=== PATIENT | male | born 1980 | race Hispanic/Latino ===

== ENCOUNTER 2017-09-24 05:51 | Emergency (ER) | payer BC ==
[2017-09-24] MEDS ORDERED: ONDANSETRON HCL MDV 20ML 2 MG/ML VIAL ONE (06:04)
[2017-09-24] MEDS ORDERED: SODIUM CHLORIDE 0.9% 1000ML 1,000 ML IV ONE (06:04)
[2017-09-24] MEDS ORDERED: KETOROLAC TROMETHAMINE 30MG/ML ONE (06:04)
[2017-09-24 06:10] LABS: BASOPHILS % (AUTO) 0.6 % (0.0-5.0); BILIRUBIN,URINE Negative (NEGATIVE); COLOR,URINE Yellow (YELLOW); GLUCOSE, URINE (UA) Negative (NEGATIVE); HEMATOCRIT 44.8 % (42-54); KETONES,URINE Negative (NEGATIVE); LEUKOCYTE ESTERASE ,URINE Negative (NEGATIVE); LYMPHOCYTES % (AUTO) 16.8 % (21.0-51.0); MEAN CORPUSCULAR HEMOGLOBIN 29.1 pg (27.0-33.0); MEAN CORPUSCULAR HGB CONC 33.9 g/dL (32.0-36.0); MEAN CORPUSCULAR VOLUME 85.7 fL (79-99); MONOCYTES % (AUTO) 6.6 % (3.0-13.0); NITRATE,URINE Negative (NEGATIVE); OCCULT BLOOD,URINE Small (NEGATIVE); PH,URINE 5.5 (5.0-8.0); PLATELET COUNT (AUTO) 237 K/uL (130-400); PROTEIN,URINE Trace (NEGATIVE); RED BLOOD CELL COUNT(AUTO) 5.23 MIL/uL (4.50-6.20); RED CELL DISTRIBUTION WIDTH 13.4 % (11.0-15.5); WHITE BLOOD COUNT (AUTO) 12.7 K/uL (4.8-10.8)
[2017-09-24 06:12] LABS: APPEARANCE,URINE SLIGHTLY CLOUDY (CLEAR)
[2017-09-24 06:19] LABS: POTASSIUM 4.5 mmol/L (3.5-5.1)
[2017-09-24 06:22] LABS: BACTERIA,URINE None Seen /HPF (None Seen); MUCUS,URINE Few LPF (None Seen); RBC,URINE 0-1 /HPF (0-1); SQUAMOUS EPITHELIAL CELL,UR Rare /HPF (0-2); WBC,URINE None Seen /HPF (0-1)
[2017-09-24 06:26] LABS: ALBUMIN 3.8 g/dL (3.5-5.0); BILIRUBIN,TOTAL 0.5 mg/dL (0.2-1.0)
[2017-09-24] MEDS ORDERED: TRAMADOL HCL 50 MG TABLET ONE (07:05)
[2017-09-24] MEDS ORDERED: TAMSULOSIN HCL 0.4 MG CAP.ER.24H ONE (07:06)
[2017-09-24] MEDS ORDERED: CYCLOBENZAPRINE HCL 10 MG TABLET ONE (07:06)
== END 2017-09-24 07:42 | disposition home or self-care (01) ==
LOC: EDH 05:51
DX: N20.1 Calculus of ureter (principal); Z87.442 Personal history of urinary calculi
CPT/HCPCS: 36415; 74176; 80053; 81001; 82150; 83690; 85025; 96361; 96374; 96375; 99285; J1885; J7030

== ENCOUNTER 2019-07-26 14:31 | Emergency (ER) | payer BC ==
[2019-07-26] MEDS ORDERED: IBUPROFEN 800 MG TAB ONE (16:11)
== END 2019-07-26 16:23 | disposition home or self-care (01) ==
LOC: EDH 14:31
DX: S43.491A Other sprain of right shoulder joint, initial encounter (principal); Z72.0 Tobacco use; Z87.442 Personal history of urinary calculi; X50.0XXA Overexertion from strenuous movement or load, initial encounter; Y93.89 Activity, other specified; Y92.89 Other specified places as the place of occurrence of the external cause; Y99.8 Other external cause status
CPT/HCPCS: 73030

== ENCOUNTER 2024-02-11 04:55 | Emergency (ER) | payer SELFPAY ==
[~2024-02-11] VITALS: Ht 172.7 cm; Wt 122.5 kg
[2024-02-11 05:40] LABS: APPEARANCE,URINE CLOUDY (CLEAR); BILIRUBIN,URINE NEGATIVE (NEGATIVE); COLOR,URINE YELLOW (YELLOW); GLUCOSE, URINE (UA) NEGATIVE (NEGATIVE); KETONES,URINE NEGATIVE (NEGATIVE); LEUKOCYTE ESTERASE ,URINE NEGATIVE Leu/uL (NEGATIVE); NITRATE,URINE NEGATIVE (NEGATIVE); OCCULT BLOOD,URINE LARGE (NEGATIVE); PH,URINE 5.5 (5.0-8.0); PROTEIN,URINE 20 mg/dL (NEGATIVE); UROBILINOGEN,URINE 0.2 mg/dL (0.2-1.0)
[2024-02-11 05:44] LABS: ADD UA MICROSCOPIC YES
[2024-02-11 05:55] LABS: MUCUS,URINE RARE LPF (None Seen); RBC,URINE TNTC /HPF (0-1); SQUAMOUS EPITHELIAL CELL,UR RARE /HPF (0-2)
[2024-02-11 06:02] LABS: BASOPHILS # (AUTO) 0.05 K/uL (0.00-0.20); BASOPHILS % (AUTO) 0.5 % (0.0-5.0); EOSINOPHILS # (AUTO) 0.11 K/uL (0.00-0.70); EOSINOPHILS % (AUTO) 1.1 % (0.0-8.0); HEMATOCRIT 43.7 % (42-54); IMMATURE GRANULOCYTE ABSOLUTE 0.04 K/uL (0-1); LYMPHOCYTES # (AUTO) 1.2 K/uL (1.0-4.8); LYMPHOCYTES % (AUTO) 12.9 % (21.0-51.0); MEAN CORPUSCULAR HEMOGLOBIN 28.9 pg (27.0-33.0); MEAN CORPUSCULAR HGB CONC 33.4 g/dL (32.0-36.0); MEAN CORPUSCULAR VOLUME 86.4 fL (79-99); MONOCYTES # (AUTO) 0.5 K/uL (0.1-1.0); MONOCYTES % (AUTO) 4.7 % (3.0-13.0); NEUTROPHILS # (AUTO) 7.7 K/uL (1.8-7.7); NEUTROPHILS % (AUTO) 80.4 % (40.0-77.0); PLATELET COUNT (AUTO) 244 K/uL (130-400); RED BLOOD CELL COUNT(AUTO) 5.06 MIL/uL (4.50-6.20); RED CELL DISTRIBUTION WIDTH 13.2 % (11.0-15.5); WHITE BLOOD COUNT (AUTO) 9.6 K/uL (4.8-10.8)
[2024-02-11] MEDS: KETOROLAC 30MG VIAL (30MG/ML) IVP ONE (06:10)
[2024-02-11 06:11] LABS: POTASSIUM 3.7 mmol/L (3.5-5.1)
[2024-02-11 09:46] VITALS: BP 127/88; PULSE 60; RESP 17; O2SAT 97
[2024-02-11] MEDS ORDERED: ONDA-243 PO (10:01)
[2024-02-11] MEDS ORDERED: IBUP-2077 PO (10:01)
[2024-02-11] MEDS ORDERED: TAMS-1 PO (10:01)
== END 2024-02-11 10:08 | disposition home or self-care (01) ==
LOC: EDH 04:55
DX: N13.2 Hydronephrosis with renal and ureteral calculous obstruction (principal)
CPT/HCPCS: 99285; 74176; 96374; 80048; 85025; 87086; 81001; 36415; J1885

== ENCOUNTER 2024-07-02 12:56 | Inpatient (IN) | payer SELFPAY ==
[~2024-07-02] VITALS: Ht 172.7 cm; Wt 2.3 kg
[~2024-07-02 12:56] MED LIST: IBUP-2077 PO; ONDA-243 PO; TAMS-1 PO
--- NOTE | 2024-07-02 13:04 | ERN ---
ED Note History of Present Illness Stated Complaint: RIGHT FLANK PAIN Chief Complaint: Flank Pain Time Seen by MD: 13:00 Dictation: PATIENT IS A 44-YEAR-OLD MALE COMING IN TODAY WITH RIGHT FLANK PAIN RADIATING TO RIGHT LOWER QUADRANT WITHOUT NAUSEA VOMITING FEVER CHILLS OR CHANGES IN URINATION. STATES HE HAD A KIDNEY STONE ON THE LEFT A YEAR AGO HOWEVER DOES NOT HAVE A PRIMARY CARE DOCTOR NO UROLOGIST AND HAS TAKEN NOTHING TODAY PRIOR TO ARRIVAL FOR PAIN. Allergies: Coded Allergies: No Known Drug Allergies (Unverified Allergy, Unknown, 02/11/24) Home Meds Active Scripts Ondansetron (Ondansetron Odt) 4 Mg Tab.rapdis, 4 MG PO TID PRN for NAUSEA/VOMITING, #30 TAB 0 Refills Prov:ZAKIYA WALKER MD 02/11/24 Ibuprofen (Ibuprofen 800 mg Tab) 800 Mg Tab, 800 MG PO Q6H PRN for PAIN, #30 TAB 0 Refills Prov:ZAKIYA WALKER MD 02/11/24 Tamsulosin HCl (Flomax) 0.4 Mg Cap.er.24h, 0.4 MG PO DAILY, #7 CAPSULE.DR 0 Refills Prov:ZAKIYA WALKER MD 02/11/24 Past Medical History Past Medical History: Kidney Stone Surgical History: Other Surgical History Other: KIDNEY STONE SX PSYCH History: no pertinent psych hx RN Note Reviewed/Agreed w/PFSH: Yes Review of System Dictation CONSTITUTIONAL: NEGATIVE EXCEPT FOR HPI HEAD/FACE: NEGATIVE EXCEPT FOR HPI EENT: NEGATIVE EXCEPT FOR HPI RESPIRATORY: NEGATIVE EXCEPT FOR HPI GASTROINTESTINAL/ABDOMINAL: NEGATIVE EXCEPT FOR HPI RIGHT FLANK PAIN RADIATING TO RIGHT LOWER QUADRANT GENITOURINARY: NEGATIVE EXCEPT FOR HPI MUSCULOSKELETAL: NEGATIVE EXCEPT FOR HPI INTEGUMENTARY: NEGATIVE EXCEPT FOR HPI NEUROLOGICAL/PSYCH: NEGATIVE EXCEPT FOR HPI HEMATOLOGIC/LYMPHATIC: NEGATIVE EXCEPT FOR HPI ALL SYSTEMS NEGATIVE, EXCEPT NOTED ABOVE. 13 POINT REVIEW OF SYSTEMS ASSESSED AND ALL NEGATIVE EXCEPT FOR ABOVE. Initial Vital Sign VS Vital Signs Date Time Temp Pulse Resp B/P (MAP) Pulse Ox O2 Delivery O2 Flow Rate FiO2 07/02/24 12:59 98.4 71 18 134/84 97 Room Air 0 07/02/24 13:03 21 Physical Exam Dictation VITAL SIGNS REVIEWED GENERAL APPEARANCE: ALERT, ORIENTED X 3, MT ACUTE DISTRESS, WELL DEVELOPED, NOURISHED. MORBIDLY OBESE HEAD AND FACE: NON-TRAUMATIC. EYES: PERRL, PINK CONJUNCTIVAS, EYELID NO TRAUMA, ANTERIOR CHAMBER WITH ARCUS SENILIS. EARS: PINNAS INTACT AND NO SIGNS OF TRAUMA OR ERYTHEMA EAR CANALS CLEAR AND NO DISCHARGE TM NO ERYTHEMA NOSE: NO DISCHARGE, NO BLEEDING. OROPHARYNX: MOUTH NORMAL, TONGUE PINK, PHARYNX CLEAR,NO ERYTHEMA, TONSILS NO EXUDATES, NO ABSCESSES NOTED, MUCOUS MEMBRANE MOIST NECK: SUPPLE, NON-TENDER, NO THYROMEGALY, NO MASSES, NO JVD, NO BRUITS BREAST:DEFERRED CHEST:NO TENDERNESS, NO CREPITUS, NO PARADOXICAL MOVEMENT, NO RETRACTIONS LUNGS:CLEAR, WELL-VENTILATED, SYMMETRIC, NO RALES, NO WHEEZING, NO RHONCHI, NO STRIDOR, GOOD BREATH SOUNDS BILATERALLY HEART: REGULAR RATE, REGULAR RHYTHM, NO MURMUR, NO GALLOPS VASCULAR: NO PERIPHERAL EDEMA, ABDOMEN: SOFT, POSITIVE BOWEL SOUNDS, NONDISTENDED, NO GUARDING, NONTENDER, NO REBOUND, NO MASSES NO HEPATOMEGALY, NO SPLENOMEGALY, NO CANTOR'S SIGN, NO HERNIAS. NEGATIVE CVAT BILATERAL RECTAL: DEFERRED GENITAL: DEFERRED NEUROLOGICAL: NORMAL SPEECH, MOTOR FUNCTION INTACT, SENSORY FUNCTION INTACT MUSCULOSKELETAL: NECK NONTENDER, FULL RANGE OF MOTION, BACK NONTENDER, FULL RANGE OF MOTION, EXTREMITIES: NONTENDER, FULL RANGE OF MOTION SKIN: COLOR PINK, DRY, NO TURGOR, NO RASH, NO LACERATIONS, NO ABRASIONS, NO CONTUSIONS. LYMPHATIC: DEFERRED Results (Laboratory/Radiology) Laboratory/Radiology Laboratory Tests Test 07/02/24 13:08 07/02/24 14:13 Urine Color YELLOW (YELLOW) Urine Appearance CLEAR (CLEAR) Urine pH 5.5 (5.0-8.0) Urine Specific Cord 1.026 (1.001-1.031) Urine Protein 10 mg/dL (NEGATIVE) H Urine Glucose (UA) NEGATIVE mg/dL (NEGATIVE) Urine Ketones NEGATIVE mg/dL (NEGATIVE) Urine Occult Blood +- (TRACE) (NEGATIVE) H Urine Nitrate NEGATIVE (NEGATIVE) Urine Bilirubin NEGATIVE mg/dL (NEGATIVE) Urine Urobilinogen 0.2 mg/dL (0.2-1.0) Urine Leukocyte Esterase NEGATIVE Kely/uL Urine RBC 0-1 /HPF (0-1) Urine WBC 0-1 /HPF (0-1) Urine Squamous Epithelial Cells RARE /HPF (0-2) Urine Bacteria None /HPF (None Seen) White Blood Count 9.5 K/uL (4.8-10.8) Red Blood Count 5.02 MIL/uL (4.50-6.20) Hemoglobin 14.9 g/dL (14.0-18.0) Hematocrit 43.6 % (42-54) Mean Corpuscular Volume 86.9 fL (79-99) Mean Corpuscular Hemoglobin 29.7 pg (27.0-33.0) Mean Corpuscular Hemoglobin Concent 34.2 g/dL (32.0-36.0) Red Cell Distribution Width 13.0 % (11.0-15.5) Platelet Count 246 K/uL (130-400) Mean Platelet Volume 12.2 fL (7.5-10.5) H Immature Granulocyte % (Auto) 0.3 % (0-1) Neutrophils (%) (Auto) 68.9 % (40.0-77.0) Lymphocytes (%) (Auto) 18.7 % (21.0-51.0) L Monocytes (%) (Auto) 8.4 % (3.0-13.0) Eosinophils (%) (Auto) 3.1 % (0.0-8.0) Basophils (%) (Auto) 0.6 % (0.0-5.0) Neutrophils # (Auto) 6.6 K/uL (1.8-7.7) Lymphocytes # (Auto) 1.8 K/uL (1.0-4.8) Monocytes # (Auto) 0.8 K/uL (0.1-1.0) Eosinophils # (Auto) 0.30 K/uL (0.00-0.70) Basophils # (Auto) 0.06 K/uL (0.00-0.20) Absolute Immature Granulocyte (auto 0.03 K/uL (0-1) Nucleated Red Blood Cells 0.0 % (0.0-0.19) Sodium Level 140 mmol/L (136-145) Potassium Level 3.7 mmol/L (3.5-5.1) Chloride Level 104 mmol/L (101-111) Carbon Dioxide Level 29 mmol/L (21-32) Blood Urea Nitrogen 8 mg/dL (7-18) Creatinine 0.9 mg/dL (0.5-1.3) Glomerular Filtration Rate Calc 108 mL/min (>90) Random Glucose 97 mg/dL (70-105) Total Calcium 8.7 mg/dL (8.5-10.1) Lipase 225 U/L (16-77) H CT ABDOMEN/PELVIS W/O CONTRAST INDICATION: RIGHT FLANK PAIN RADIATING TO RIGHT LOWER QUADRANT TWO DAYS TECHNIQUE: CT ABDOMEN/PELVIS W/O CONTRAST. Oral contrast was not given. Coronal and sagittal reformats were performed. CT was performed with one or more of the following dose reduction techniques: Automated exposure control, adjustment of the mA and/or kV according to the patient's size, or use of the iterative reconstruction technique. Comparison: 02/11/2024 FINDINGS: The noncontrast nature this study limits evaluation of abdominal viscera. No pulmonary consolidation or pleural effusion is seen. There is hepatic steatosis. Small gallstone is seen. Contracted gallbladder. The spleen, pancreas, and adrenal glands are within normal limits. No hydronephrosis seen. 5 mm nonobstructing calculus in the lower pole of the left kidney. Nondistended urinary bladder. Reproductive organs are grossly within normal limits for patient's age. No bowel obstruction identified. Appendix is normal in caliber. Degenerative changes of the spine. Visualized aorta is normal in caliber. IMPRESSION: 1. No hydronephrosis seen. 5 mm nonobstructing calculus in the lower pole of the left kidney. 2. Hepatic steatosis. 3. Cholelithiasis.. Labs Reviewed?: Yes ED Course ED Course Orders Procedure Category Date Status Time Cbc With Differential LAB 07/02/24 Complete 13:01 Urinalysis Profile LAB 07/02/24 Complete 13:01 0.9%Nacl 1000ml (Ns PHA 07/02/24 Complete 1000ml) 13:30 Ketorolac PHA 07/02/24 Complete Tromethamine 30mg/Ml 13:30 Ct Abdomen/Pelvis W/O CT 07/02/24 Resulted Contrast 13:01 Lipase LAB 07/02/24 Complete 13:01 Basic Metabolic Panel LAB 07/02/24 Complete 13:01 Famotidine 20mg Vial PHA 07/02/24 In Process (Pepcid 20mg Vial) 17:00 Current Medications Medications (Trade) Dose Ordered Sig/Miguel Angel Route PRN Reason Start Time Stop Time Status Last Admin Dose Admin Famotidine (Pepcid 20mg Vial) 20 mg ONCE ONCE IV 07/02/24 17:00 07/02/24 17:01 Ketorolac Tromethamine (toRADol) 30 mg ONCE ONCE IVP 07/02/24 13:30 07/02/24 13:31 DC 07/02/24 16:22 Sodium Chloride 1,000 ml @ 0 mls/hr ONCE ONCE IV 07/02/24 13:30 07/02/24 13:31 DC 07/02/24 16:22 Vital Signs Date Time Temp Pulse Resp B/P (MAP) Pulse Ox O2 Delivery O2 Flow Rate FiO2 07/02/24 13:03 98.4 71 18 134/84 97 Room Air* 0 21 07/02/24 12:59 98.4 71 18 134/84 97 Room Air 0 SIXTEEN 50, SPOKE WITH PATIENT AND HE IS AWARE THAT HE HAS ACUTE PANCREATITIS AND WE WILL BE ADMITTED TO THE HOSPITAL. CURRENTLY CONTINUES TO COMPLAIN OF E PIGASTRIC AND MILD LEFT UPPER QUADRANT TENDERNESS. CT WAS NEGATIVE FOR PANCREATIC HEAD INFLAMMATION. 1655 SPOKE WITH , REVIEWED CT AND LABS HE AGREED TO ADMIT PATIENT. HE ALSO REQUESTED A LIPID PANEL BE ADDED TO THE ORDERS. Medical Decision Making MDM MDM: DIFFERENTIAL DIAGNOSIS: HYDRONEPHROSIS/HYDROURETER/URETERAL COLIC/PYELONEPHRITI S/UTI/PANCREATITIS/DIVERTICULITIS/GASTRITIS/DIABETES RATIONALE: TESTS CONSIDERED AND ORDERED SECONDARY TO SHARED DECISION MAKING INCLUDE: LABS, AND RADIOLOGY PREVIOUS OUTSIDE RECORDS REVIEWED: OLD ER VISITS. REVIEWED RISK OF COMPLICATION AND/OR MORBIDITY OR MORTALITY OF PATIENT MANAGEMENT: MODERATE MEDICATIONS-PER MEDICATION RECONCILIATION SEE NURSE'S NOTES NEED FOR HOSPITALIZATION: PATIENT DOES MEET CRITERIA FOR HOSPITALIZATION. PATIENT WILL BE NPO FLUID MANAGEMENT AND PAIN MANAGEMENT. NEED FOR EMERGENCY MAJOR/MINOR SURGERY: NO THERE ARE NO SOCIAL CONCERNS WITH THIS PATIENT. PRESCRIPTION DRUG MANAGEMENT PRESCRIPTIONS WILL INCLUDE SYMPTOMATIC CARE PATIENT'S PRIOR EXTERNAL MEDICAL RECORDS FROM OTHER ER VISITS WERE REVIEWED BY ME INDICATED. PRIOR TESTING AND RESULTS FROM PREVIOUS VISITS WERE REVIEWED. PRIOR TESTS WERE TAKEN INTO ACCOUNT WITH MEDICAL DECISION MAKING AND RESOURCE UTILIZATION, INDEPENDENT HISTORIAN/HISTORIANS WERE USED TO OBTAIN COMPLETE MEDICAL HISTORY. I INDEPENDENTLY INTERPRETED THE TEST THAT WERE PERFORMED, RESULTS WERE REVIEWED BY ME AND CONSIDERED FINDINGS ON RADIOLOGY IF ORDERED. MEDICAL MANAGEMENT AND EXAMINATION INTERPRETATION DISCUSSIONS WERE HAD BY ME WITH OTHER QUALIFIED HEALTHCARE PROFESSIONALS INDICATED FOR THE PATIENT'S CARE. DX & DISP Disposition: Inpatient Decision to Admit Time: 16:57 Departure Impression: Primary Impression: Acute pancreatitis Additional Impressions: Left renal stone, Obesity Condition: Stable Referrals: SELF,REFERRAL (PCP) Time of Disposition: 16:57 I have reviewed the case, and I agree with, Diagnosis and Plan GERMAN HENRY NP Jul 02, 2024 13:03
--- NOTE | 2024-07-02 13:51 | HMCIMG ---
CT ABDOMEN/PELVIS W/O CONTRAST INDICATION: RIGHT FLANK PAIN RADIATING TO RIGHT LOWER QUADRANT TWO DAYS TECHNIQUE: CT ABDOMEN/PELVIS W/O CONTRAST. Oral contrast was not given. Coronal and sagittal reformats were performed. CT was performed with one or more of the following dose reduction techniques: Automated exposure control, adjustment of the mA and/or kV according to the patient's size, or use of the iterative reconstruction technique. Comparison: 02/11/2024 FINDINGS: The noncontrast nature this study limits evaluation of abdominal viscera. No pulmonary consolidation or pleural effusion is seen. There is hepatic steatosis. Small gallstone is seen. Contracted gallbladder. The spleen, pancreas, and adrenal glands are within normal limits. No hydronephrosis seen. 5 mm nonobstructing calculus in the lower pole of the left kidney. Nondistended urinary bladder. Reproductive organs are grossly within normal limits for patient's age. No bowel obstruction identified. Appendix is normal in caliber. Degenerative changes of the spine. Visualized aorta is normal in caliber. IMPRESSION: 1. No hydronephrosis seen. 5 mm nonobstructing calculus in the lower pole of the left kidney. 2. Hepatic steatosis. 3. Cholelithiasis..
[2024-07-02 13:56] LABS: APPEARANCE,URINE CLEAR (CLEAR); BILIRUBIN,URINE NEGATIVE (NEGATIVE); COLOR,URINE YELLOW (YELLOW); GLUCOSE, URINE (UA) NEGATIVE (NEGATIVE); KETONES,URINE NEGATIVE (NEGATIVE); LEUKOCYTE ESTERASE ,URINE NEGATIVE Leu/uL (NEGATIVE); NITRATE,URINE NEGATIVE (NEGATIVE); PH,URINE 5.5 (5.0-8.0); PROTEIN,URINE 10 mg/dL (NEGATIVE); UROBILINOGEN,URINE 0.2 mg/dL (0.2-1.0)
[2024-07-02 13:57] LABS: ADD UA MICROSCOPIC YES
[2024-07-02 13:59] LABS: MUCUS,URINE RARE LPF (None Seen); RBC,URINE 0-1 /HPF (0-1); SQUAMOUS EPITHELIAL CELL,UR RARE /HPF (0-2); WBC,URINE 0-1 /HPF (0-1)
[2024-07-02 14:29] LABS: BASOPHILS # (AUTO) 0.06 K/uL (0.00-0.20); BASOPHILS % (AUTO) 0.6 % (0.0-5.0); EOSINOPHILS % (AUTO) 3.1 % (0.0-8.0); HEMATOCRIT 43.6 % (42-54); IMMATURE GRANULOCYTE ABSOLUTE 0.03 K/uL (0-1); LYMPHOCYTES # (AUTO) 1.8 K/uL (1.0-4.8); LYMPHOCYTES % (AUTO) 18.7 % (21.0-51.0); MEAN CORPUSCULAR HEMOGLOBIN 29.7 pg (27.0-33.0); MEAN CORPUSCULAR HGB CONC 34.2 g/dL (32.0-36.0); MEAN CORPUSCULAR VOLUME 86.9 fL (79-99); MONOCYTES # (AUTO) 0.8 K/uL (0.1-1.0); MONOCYTES % (AUTO) 8.4 % (3.0-13.0); NEUTROPHILS # (AUTO) 6.6 K/uL (1.8-7.7); NEUTROPHILS % (AUTO) 68.9 % (40.0-77.0); PLATELET COUNT (AUTO) 246 K/uL (130-400); RED BLOOD CELL COUNT(AUTO) 5.02 MIL/uL (4.50-6.20); WHITE BLOOD COUNT (AUTO) 9.5 K/uL (4.8-10.8)
[2024-07-02 14:54] LABS: CREATININE 0.9 mg/dL (0.5-1.3); POTASSIUM 3.7 mmol/L (3.5-5.1)
[2024-07-02] MEDS: ketOROlac 30MG VIAL (30MG/ML) IVP ONE (16:22)
[2024-07-02] MEDS: 0.9%NACL 1000ML 1,000 ML IV ONE (16:22)
[2024-07-02] MEDS ORDERED: acetaMINOPHEN 325 MG TAB PO PRN (17:30)
[2024-07-02] MEDS ORDERED: ondanSETRON 4MG INJ IVP PRN (17:30)
[2024-07-02 17:32] LABS: INR 0.96 (0.85-1.15); PROTHROMBIN TIME 10.8 SEC (9.6-11.6)
[2024-07-02 17:33] LABS: PARTIAL THROMBOPLASTIN TIME 30.8 SEC (26.3-35.5)
[2024-07-02 17:38] LABS: ALBUMIN 3.6 g/dL (3.5-5.0); BILIRUBIN,DIRECT 0.1 mg/dL (0.0-0.3); BILIRUBIN,TOTAL 0.3 mg/dL (0.2-1.0); MAGNESIUM 1.8 mg/dL (1.80-2.40); TOTAL PROTEIN, SERUM 7.9 g/dL (6.0-8.3)
--- NOTE | 2024-07-02 18:02 | HMCIMG ---
Exam Type: CHEST 1VW Clinical Information: assess for any significant infiltrates, possible pancreatitis Comparison: None Findings: Ill-defined infiltrates of the right lower lobe are seen consistent with pneumonia. The heart is normal in size. The bony and soft tissue structures show no worrisome pathology. IMPRESSION: Findings consistent with pneumonia. Follow-up is advised.
[2024-07-02] MEDS: LACTATED RINGERS 1000ML 1,000 ML IV SCH (18:20)
[2024-07-02] MEDS: PANTOPrazole 40 MG/VIAL IVP SCH (18:20)
[2024-07-02] MEDS: FAMOTIDINE 20MG VIAL IV ONE (18:20)
--- NOTE | 2024-07-02 18:59 | HMCIMG ---
Exam Type: US ABDOMINAL RUQ\E\LTD Clinical Information: r/o cholecystitis, assess for cholelithiasis Comparison: None Findings: The liver shows fatty infiltration and is enlarged, measuring 18 cm and is otherwise unremarkable. Doppler evaluation shows patent portal and hepatic veins. The gallbladder shows evidence of cholelithiasis. There is no evidence of acute or chronic cholecystitis. No bile duct dilatation is noted. The gallbladder wall measures 2 mm. The common bile duct measures 6 mm. The right kidney measures 12 x 3.5 cm- it shows no hydronephrosis or calculi, masses or other abnormalities. The pancreas is unremarkable. The aorta and inferior vena cava show no significant abnormalities. IMPRESSION: FATTY LIVER INFILTRATION AND HEPATOMEGALY. Cholelithiasis.
[2024-07-02] MEDS: SODIUM CHLORIDE 3% FOR INHALATION 4 ML/AMP VIAL.NEB IH ONE ×2 (19:17→23:20)
--- NOTE | 2024-07-02 19:25 | HP ---
[facility] HISTORY [facility] PHYSICAL Date of Service: Jul 02, 2024 Time of Service: 19:06 HISTORY OF PRESENT ILLNESS: Date of service: 07/02/2024, patient was seen in ER room 11 44-year-old male with underlying history of obesity, previous history of nephrolithiasis who presented to the ER with chief complaint of right-sided flank pain and right upper quadrant pain ongoing for the past two days. Symptoms started close to Wednesday afternoon and has been nonresolving. Pain is 7/10 in severity. Symptoms have been accompanied by bloating. Denies any nausea or vomiting. Pain was involving the right flank earlier this morning and has migrated to the right upper quadrant. Denies any previous history of similar pain. Patient does have underlying history of left renal nephrolithiasis and previously needed lithotripsy in 2008. Denies any previous history of pulmonary or cardiac comorbidities. Reports that two weeks ago, he was sick with mild congestion and mild cough. Since then he has recovered. He also states that he may have pulled his muscle on the right side on car ride few days ago. On presentation to the hospital, patient was noted to be afebrile and hem odynamically stable. Labs on presentation showed WBC count of 9500, hemoglobin of 14.9, platelet count of 380646. CMP remarkable for sodium of 140, potassium 3.7, creatinine 0.9, magnesium 1.8, lipase was noted to be mildly elevated at 225. Patient underwent CT abdomen pelvis without contrast which showed fatty liver with cholelithiasis. Patient was found to have a nonobstructing 5 mm left renal calculus. Chest x-ray showed possible right lower lobe infiltrates and per Radiology, patient may be developing a pneumonia. Patient will be admitted for further management of possible developing acute pancreatitis, as well as pneumonia. Patient will receive IV fluid hydration, and antibiotic therapy. We will see how patient progresses in the next 24-48 hours. We will obtain right upper quadrant ultrasound to rule out any developing acute cholecystitis. Discussed with patient about losing weight once his clinical status improves. REVIEW OF SYSTEMS CONSTITUTIONAL: Denies fevers, chills, or night sweats. No unintentional weight loss reported. NEUROLOGICAL: Denies headache, amaurosis fugax, motor weakness, sensory deficit, vertigo/spinning sensation, gait abnormalities, or tremors. ENT: No hearing loss, otalgia, otorrhea, rhinitis, rhinorrhea, hoarseness, or sore throat. CARDIOVASCULAR: Denies any exertional angina, dyspnea on exertion, orthopnea, paroxysmal nocturnal dyspnea, palpitations, life-threatening arrhythmias, claudication. PULMONARY: Denies any shortness of breath, cough, phlegm/sputum, hemoptysis, pleuritic chest pain. SLEEP: Denies morning headaches, daytime somnolence or napping. Denies difficulty falling asleep, staying asleep, waking from sleep. Denies knowledge of snoring. GASTROINTESTINAL: Persistent nonresolving right flank as well as right upper quadrant pain GENITOURINARY: Denies frequency, urgency, nocturia, hematuria or incontinence (Storage/Irritative symptoms.) Low urinary stream, straining to void, urinary intermittency or hesitancy, splitting of the voiding stream, terminal dribbling. ENDOCRINOLOGIC: Denies polyuria, polydipsia, polyphagia or heat/cold intolerances. HEMATOLOGIC: Denies thrombophilia/previous clots, or coagulopathy/bleeding disorders. ONCOLOGIC: Denies personal history of malignancy. DERMATOLOGIC: Denies rashes or pruritus. PSYCHIATRIC: Denies any suicidal or homicidal ideation. Denies hallucinations. 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 NEUROLOGICAL: Cranial nerves II-XII grossly intact. Motor is 5/5 in bilateral upper and lower extremities proximal to distal. No sensory deficits. HEENT: Face is symmetric. Pupils are equal and reactive. Extraocular movements are intact. NECK: Supple. No JVD. No thyromegaly. No submental, submandibular, pre-/postauricular, occipital or supraclavicular lymphadenopathy. CHEST: Normal chest expansion. No Telemetry. LUNGS: Absence of any rales, rhonchi or any wheezing. CARDIOVASCULAR: Regular. S1 and S2 normal. No appreciable rubs, murmurs or gallops. ABDOMEN: Soft, nontender, and nondistended. Mild tenderness to palpation of the right upper quadrant and right flank region with no rebound or guarding : Deferred. No [place]. EXTREMITIES: Non-edematous and not cyanotic. No clubbing. Good capillary refill. SKIN: No skin breakdown. Vital Sign (Last 24 Hours) 07/02/24 18:52 Temp 98.2 Pulse 71 Resp 16 B/P (MAP) 146/89 Pulse Ox 98 O2 Delivery Room Air* O2 Flow Rate 0 FiO2 21 LABS: Laboratory: Test 07/02/24 14:13 07/02/24 13:08 Range/Units White Blood Count 9.5 4.8-10.8 K/uL Red Blood Count 5.02 4.50-6.20 MIL/uL Hemoglobin 14.9 14.0-18.0 g/dL Hematocrit 43.6 42-54 % Mean Corpuscular Volume 86.9 79-99 fL Mean Corpuscular Hemoglobin 29.7 27.0-33.0 pg Mean Corpuscular Hemoglobin Concent 34.2 32.0-36.0 g/dL Red Cell Distribution Width 13.0 11.0-15.5 % Platelet Count 246 130-400 K/uL Mean Platelet Volume 12.2 H 7.5-10.5 fL Immature Granulocyte % (Auto) 0.3 0-1 % Neutrophils (%) (Auto) 68.9 40.0-77.0 % Lymphocytes (%) (Auto) 18.7 L 21.0-51.0 % Monocytes (%) (Auto) 8.4 3.0-13.0 % Eosinophils (%) (Auto) 3.1 0.0-8.0 % Basophils (%) (Auto) 0.6 0.0-5.0 % Neutrophils # (Auto) 6.6 1.8-7.7 K/uL Lymphocytes # (Auto) 1.8 1.0-4.8 K/uL Monocytes # (Auto) 0.8 0.1-1.0 K/uL Eosinophils # (Auto) 0.30 0.00-0.70 K/uL Basophils # (Auto) 0.06 0.00-0.20 K/uL Absolute Immature Granulocyte (auto 0.03 0-1 K/uL Nucleated Red Blood Cells 0.0 0.0-0.19 % Erythrocyte Sedimentation Rate 15 0-15 MM/HR Prothrombin Time 10.8 9.6-11.6 SEC Prothromb Time International Ratio 0.96 0.85-1.15 Activated Partial Thromboplast Time 30.8 26.3-35.5 SEC Sodium Level 140 136-145 mmol/L Potassium Level 3.7 3.5-5.1 mmol/L Chloride Level 104 101-111 mmol/L Carbon Dioxide Level 29 21-32 mmol/L Blood Urea Nitrogen 8 7-18 mg/dL Creatinine 0.9 0.5-1.3 mg/dL Glomerular Filtration Rate Calc 108 >90 mL/min Random Glucose 97 70-105 mg/dL Total Calcium 8.7 8.5-10.1 mg/dL Magnesium Level 1.80 1.80-2.40 mg/dL Total Bilirubin 0.3 0.2-1.0 mg/dL Direct Bilirubin 0.1 0.0-0.3 mg/dL Aspartate Amino Transf (AST/SGOT) 39 H 10-37 U/L Alanine Aminotransferase (ALT/SGPT) 60 12-78 U/L Alkaline Phosphatase 122 50-136 U/L Lactate Dehydrogenase 184 81-234 U/L C-Reactive Protein, Quantitative 9.30 H 0.5-3.0 mg/L Total Protein 7.9 6.0-8.3 g/dL Albumin 3.6 3.5-5.0 g/dL Triglycerides Level 131 30-200 mg/dL Cholesterol Level 179 <200 mg/dL LDL Cholesterol 123 H 0-99 mg/dL HDL Cholesterol 40 29-71 mg/dL Amylase Level 93 # 25-115 U/L Lipase 225 H 16-77 U/L Procalcitonin < 0.05 L 0.05-0.5 ng/mL Urine Color YELLOW YELLOW Urine Appearance CLEAR CLEAR Urine pH 5.5 5.0-8.0 Urine Specific [place] 1.026 1.001-1.031 Urine Protein 10 H NEGATIVE mg/dL Urine Glucose (UA) NEGATIVE NEGATIVE mg/dL Urine Ketones NEGATIVE NEGATIVE mg/dL Urine Occult Blood +- (TRACE) H NEGATIVE Urine Nitrate NEGATIVE NEGATIVE Urine Bilirubin NEGATIVE NEGATIVE mg/dL Urine Urobilinogen 0.2 0.2-1.0 mg/dL Urine Leukocyte Esterase NEGATIVE NEGATIVE Kely/uL Urine RBC 0-1 0-1 /HPF Urine WBC 0-1 0-1 /HPF Urine Squamous Epithelial Cells RARE 0-2 /HPF Urine Bacteria None None Seen /HPF Current Medications Medications (Trade) Dose Ordered Sig/Miguel Angel Route PRN Reason Start Time Stop Time Status Last Admin Dose Admin Acetaminophen (TYLenol 325MG TAB) 650 mg Q6H PRN PO MILD PAIN (1-3) 07/02/24 17:30 08/01/24 17:29 Ceftriaxone Sodium (ROCEphine 1G INJ) 1 gm Q12H IVPB 07/02/24 19:00 07/12/24 18:59 Doxycycline Hyclate (Doxycycline Hyclate) 100 mg BID PO 07/02/24 21:00 07/12/24 20:59 Enoxaparin Sodium (Lovenox) 40 mg DAILY SQ 07/03/24 09:00 08/02/24 08:59 Ketorolac Tromethamine (toRADol) 15 mg Q8H PRN IV MODERATE PAIN (4-6) 07/02/24 17:30 07/04/24 17:30 Lactated Ringer's 1,000 ml @ 125 mls/hr Q8H IV 07/02/24 17:30 08/01/24 17:29 07/02/24 18:20 125 MLS/HR Morphine Sulfate (morPHINE 2MG SYG) 2 mg Q6H PRN IVP SEVERE PAIN (7-10) 07/02/24 17:30 07/09/24 17:29 Ondansetron HCl (zoFRAN 4MG INJ) 4 mg Q6H PRN IVP NAUSEA/VOMITING 07/02/24 17:30 08/01/24 17:29 Pantoprazole Sodium (PROTonix 40MG INJ) 40 mg Q24H IVP 07/02/24 17:30 08/01/24 17:29 07/02/24 18:20 40 MG DIAGNOSTICS / RADIOLOGY: REPORT#: [id number] SERVICE 1301 REASON: RIGHT FLANK PAIN RADIATING TO RIGHT LOWER QUADRANT TWO DAYS ORDERING PHYSICIAN: GERMAN HENRY NP PROCEDURE: ABD PEL WO - CT ABDOMEN/PELVIS W/O CONTRAST CT ABDOMEN/PELVIS W/O CONTRAST INDICATION: RIGHT FLANK PAIN RADIATING TO RIGHT LOWER QUADRANT TWO DAYS TECHNIQUE: CT ABDOMEN/PELVIS W/O CONTRAST. Oral contrast was not given. Coronal and sagittal reformats were performed. CT was performed with one or more of the following dose reduction techniques: Automated exposure control, adjustment of the mA and/or kV according to the patient's size, or use of the iterative reconstruction technique. Comparison: 02/11/2024 FINDINGS: The noncontrast nature this study limits evaluation of abdominal viscera. No pulmonary consolidation or pleural effusion is seen. There is hepatic steatosis. Small gallstone is seen. Contracted gallbladder. The spleen, pancreas, and adrenal glands are within normal limits. No hydronephrosis seen. 5 mm nonobstructing calculus in the lower pole of the left kidney. Nondistended urinary bladder. Reproductive organs are grossly within normal limits for patient's age. No bowel obstruction identified. Appendix is normal in caliber. Degenerative changes of the spine. Visualized aorta is normal in caliber. IMPRESSION: 1. No hydronephrosis seen. 5 mm nonobstructing calculus in the lower pole of the left kidney. 2. Hepatic steatosis. 3. Cholelithiasis.. DICTATED BY: VELVET AMBROCIO MD DATE: 07/02/24 1346 ELECTRONICALLY SIGNED BY: VELVET AMBROCIO MD DATE: 07/02/24 1351 ASSESSMENT: Suspected developing acute pancreatitis, POA Rule out developing right lower lobe community-acquired pneumonia, POA Nonresolving right upper quadrant right flank pain, POA Cholelithiasis, POA Rule out symptomatic biliary colic, POA Nonalcoholic fatty liver disease, POA Obesity, POA Nonobstructing left renal calculus, 5 mm, POA History of nephrolithiasis, POA PLAN: 44-year-old male presented with nonresolving right upper quadrant and right flank pain for the past two days, labs remarkable for mild elevation of lipase and CT abdomen pelvis showed findings of cholelithiasis, fatty liver, and nonobstructing 5 mm left renal calculus. Chest x-ray showed ill-defined infiltrates of the right lower lobe with concerns for developing pneumonia. Patient denies any significant cough, he did state that he was sick with URI symptoms about two weeks ago which has been resolving. Patient will be admitted to medical-surgical floor under telemetry monitoring We will start patient on IV hydration with LR at 125 cc an hour, we will keep him NPO tonight and once abdominal pain improves, we will start patient on a diet We will obtain sputum culture, we will start broad-spectrum antibiotics with IV Rocephin and doxycycline, we will also obtain COVID and flu panel, to further clarify diagnosis if patient has right lower lobe pneumonia, we can consider CT chest without contrast tomorrow monitor closely for fevers tonight We will obtain a right upper quadrant ultrasound to assess for developing acute cholecystitis as well, other differential diagnosis for right upper quadrant abdominal pain remains symptomatic biliary colic, we will have dietitian see patient for low-fat diet All labs will be repeated in the morning GI prophylaxis with Protonix, DVT prophylaxis with Lovenox Pain control with Tylenol for mild pain, Toradol for moderate pain, and morphine for severe pain We will see how patient progresses in the next 24-48 hours Once patient clinically improves, discuss with him about dietary and lifestyle modification to lose weight, patient will benefit from outpatient sleep study to rule out obstructive sleep apnea, we will refer to sleep lab on discharge Date of service: 07/02/2024 Prognosis: Guarded Plan of care was discussed with patient at bedside, Saulo Deluna MD Advanced Care Planning: Which of the following were discussed: Hospice care: Yes __ No _x_ Therapeutic options: Yes _x_ No __ Advance directives: Yes _x_ No __ Other discussions: Discussed with who?: Patient Voluntary nature of this service was explained to the patient? Yes _x_ No __ Amount of time spent: 20 minutes SAULO DELUNA MD Jul 02, 2024 19:25
[2024-07-02] MEDS ORDERED: IpraTROPium/alBUTERol SULFATE 3 ML SOLUTION IH PRN (19:30)
[2024-07-02] MEDS: cefTRIAXone 1G VIAL IVPB SCH (19:37)
[2024-07-02] MEDS: DOXYCYCLINE HYCLATE 100 MG TABLET PO SCH (19:37)
[2024-07-02] MEDS: ketOROlac 15MG/ML VIAL (15MG/ML) IV PRN (19:56)
[2024-07-02 21:20] VITALS: BP 142/80; PULSE 60; RESP 18; TEMP 97.9
--- NOTE | 2024-07-02 21:22 | NUR ---
NO HOME MEDICATIONS TAKEN, REPORTED TO FLOOR NURSE
[2024-07-02 23:24] VITALS: RESP 18; O2SAT 98
[2024-07-03] VITALS (9 sets, daily range): BP systolic 139–150; BP diastolic 76–90; PULSE 50–83; RESP 18–20; TEMP 97.9–98.5; O2SAT 95–98
[2024-07-03] MEDS: morPHINE 2 MG SYG IVP PRN (01:48)
[2024-07-03 04:15] LABS: BASOPHILS # (AUTO) 0.04 K/uL (0.00-0.20); BASOPHILS % (AUTO) 0.5 % (0.0-5.0); EOSINOPHILS # (AUTO) 0.24 K/uL (0.00-0.70); HEMATOCRIT 40.2 % (42-54); IMMATURE GRANULOCYTE ABSOLUTE 0.02 K/uL (0-1); LYMPHOCYTES % (AUTO) 24.3 % (21.0-51.0); MEAN CORPUSCULAR HEMOGLOBIN 29.2 pg (27.0-33.0); MEAN CORPUSCULAR HGB CONC 33.8 g/dL (32.0-36.0); MEAN CORPUSCULAR VOLUME 86.3 fL (79-99); MONOCYTES # (AUTO) 0.6 K/uL (0.1-1.0); MONOCYTES % (AUTO) 7.2 % (3.0-13.0); NEUTROPHILS # (AUTO) 5.2 K/uL (1.8-7.7); NEUTROPHILS % (AUTO) 64.8 % (40.0-77.0); PLATELET COUNT (AUTO) 223 K/uL (130-400); RED BLOOD CELL COUNT(AUTO) 4.66 MIL/uL (4.50-6.20); RED CELL DISTRIBUTION WIDTH 13.1 % (11.0-15.5); WHITE BLOOD COUNT (AUTO) 8.1 K/uL (4.8-10.8)
[2024-07-03 04:31] LABS: ALBUMIN 3.1 g/dL (3.5-5.0); BILIRUBIN,TOTAL 0.3 mg/dL (0.2-1.0); CREATININE 0.8 mg/dL (0.5-1.3); MAGNESIUM 1.8 mg/dL (1.80-2.40); POTASSIUM 3.8 mmol/L (3.5-5.1)
[2024-07-03] MEDS: IpraTROPium 0.5 MG/2.5 ML INH IH ONE (06:36)
[2024-07-03] MEDS: ENOXAPARIN SODIUM 40 MG/0.4 ML SYRINGE SQ SCH (09:37)
--- NOTE | 2024-07-03 11:16 | PN ---
[facility] PROGRESS NOTE Date of Service: Jul 03, 2024 Time of Service: 11:16 SUBJECTIVE: 44-year-old male with underlying history of obesity, previous history of nephrolithiasis who presented to the ER with chief complaint of right-sided flank pain and right upper quadrant pain ongoing for the past two days. Symptoms started close to Wednesday afternoon and has been nonresolving. Pain is 7/10 in severity. Symptoms have been accompanied by bloating. Denies any nausea or vomiting. Pain was involving the right flank earlier this morning and has migrated to the right upper quadrant. Denies any previous history of similar pain. Patient does have underlying history of left renal nephrolithiasis and previously needed lithotripsy in 2008. CT abdomen/pelvis1. No hydronephrosis seen. 5 mm nonobstructing calculus in the lowerpole of the left kidney.2. Hepatic steatosis.3. Cholelithiasis.. Abdominal ultrasound-FATTY LIVER INFILTRATION AND HEPATOMEGALY. Cholelithiasis. 07/03-patient was seen at the bedside with his present. Stable and orientedx3, resolving right upper quadrant pain. Hemodynamically stable. Unremarkable labs. Patient will be continued on doxy and Rocephin for pneumonia. GI consultation noted for recommendation on cholelithiasis. Patient is started on a GI soft diet, we will see if he tolerates well. We will follow accordingly. REVIEW OF SYSTEMS CONSTITUTIONAL: Denies fevers, chills, or night sweats. No unintentional weight loss reported. NEUROLOGICAL: Denies headache, amaurosis fugax, motor weakness, sensory deficit, vertigo/spinning sensation, gait abnormalities, or tremors. ENT: No hearing loss, otalgia, otorrhea, rhinitis, rhinorrhea, hoarseness, or sore throat. CARDIOVASCULAR: Denies any exertional angina, dyspnea on exertion, orthopnea, paroxysmal nocturnal dyspnea, palpitations, life-threatening arrhythmias, claudication. PULMONARY: Denies any shortness of breath, cough, phlegm/sputum, hemoptysis, pleuritic chest pain. SLEEP: Denies morning headaches, daytime somnolence or napping. Denies difficulty falling asleep, staying asleep, waking from sleep. Denies knowledge of snoring. GASTROINTESTINAL: Persistent resolving right flank as well as right upper quadrant pain GENITOURINARY: Denies frequency, urgency, nocturia, hematuria or incontinence (Storage/Irritative symptoms.) Low urinary stream, straining to void, urinary intermittency or hesitancy, splitting of the voiding stream, terminal dribbling. ENDOCRINOLOGIC: Denies polyuria, polydipsia, polyphagia or heat/cold intolerances. HEMATOLOGIC: Denies thrombophilia/previous clots, or coagulopathy/bleeding disorders. ONCOLOGIC: Denies personal history of malignancy. DERMATOLOGIC: Denies rashes or pruritus. PSYCHIATRIC: Denies any suicidal or homicidal ideation. Denies hallucinations. PHYSICAL EXAM GENERAL APPEARANCE: The patient is awake, alert, and oriented, in no acute cardiopulmonary distress. NEUROLOGICAL: Cranial nerves II-XII grossly intact. Motor is 5/5 in bilateral upper and lower extremities proximal to distal. No sensory deficits. HEENT: Face is symmetric. Pupils are equal and reactive. Extraocular movements are intact. NECK: Supple. No JVD. No thyromegaly. No submental, submandibular, pre- /postauricular, occipital or supraclavicular lymphadenopathy. CHEST: Normal chest expansion. No Telemetry. LUNGS: Absence of any rales, rhonchi or any wheezing. CARDIOVASCULAR: Regular. S1 and S2 normal. No appreciable rubs, murmurs or gallops. ABDOMEN: Soft, nontender, and nondistended. Mild tenderness to palpation of the right upper quadrant and right flank region with no rebound or guarding : Deferred. No [place]. EXTREMITIES: Non-edematous and not cyanotic. No clubbing. Good capillary refill. SKIN: No skin breakdown. Vital Signs (last 8hr) Date Time Temp Pulse Resp B/P (MAP) Pulse Ox O2 Delivery O2 Flow Rate FiO2 07/03/24 08:00 Room Air* 0 21 07/03/24 08:00 97.9 64 18 148/88 96 Room Air 07/03/24 06:38 69 18 N/A Room Air 21 07/03/24 04:00 98.4 50 18 141/79 96 Room Air LABS: Laboratory: Test 07/03/24 03:56 07/02/24 14:13 07/02/24 13:08 Range/Units White Blood Count 8.1 4.8-10.8 K/uL Red Blood Count 4.66 4.50-6.20 MIL/uL Hemoglobin 13.6 L 14.0-18.0 g/dL Hematocrit 40.2 L 42-54 % Mean Corpuscular Volume 86.3 79-99 fL Mean Corpuscular Hemoglobin 29.2 27.0-33.0 pg Mean Corpuscular Hemoglobin Concent 33.8 32.0-36.0 g/dL Red Cell Distribution Width 13.1 11.0-15.5 % Platelet Count 223 130-400 K/uL Mean Platelet Volume 12.1 H 7.5-10.5 fL Immature Granulocyte % (Auto) 0.2 0-1 % Neutrophils (%) (Auto) 64.8 40.0-77.0 % Lymphocytes (%) (Auto) 24.3 21.0-51.0 % Monocytes (%) (Auto) 7.2 3.0-13.0 % Eosinophils (%) (Auto) 3.0 0.0-8.0 % Basophils (%) (Auto) 0.5 0.0-5.0 % Neutrophils # (Auto) 5.2 1.8-7.7 K/uL Lymphocytes # (Auto) 2.0 1.0-4.8 K/uL Monocytes # (Auto) 0.6 0.1-1.0 K/uL Eosinophils # (Auto) 0.24 0.00-0.70 K/uL Basophils # (Auto) 0.04 0.00-0.20 K/uL Absolute Immature Granulocyte (auto 0.02 0-1 K/uL Nucleated Red Blood Cells 0.0 0.0-0.19 % Sodium Level 140 136-145 mmol/L Potassium Level 3.8 3.5-5.1 mmol/L Chloride Level 106 101-111 mmol/L Carbon Dioxide Level 27 21-32 mmol/L Blood Urea Nitrogen 7 7-18 mg/dL Creatinine 0.8 0.5-1.3 mg/dL Glomerular Filtration Rate Calc 112 >90 mL/min Random Glucose 96 70-105 mg/dL Total Calcium 8.5 8.5-10.1 mg/dL Magnesium Level 1.80 1.80-2.40 mg/dL Total Bilirubin 0.3 0.2-1.0 mg/dL Aspartate Amino Transf (AST/SGOT) 30 10-37 U/L Alanine Aminotransferase (ALT/SGPT) 48 12-78 U/L Alkaline Phosphatase 105 50-136 U/L Total Protein 7.0 6.0-8.3 g/dL Albumin 3.1 L 3.5-5.0 g/dL Lipase 72 16-77 U/L Erythrocyte Sedimentation Rate 15 0-15 MM/HR Prothrombin Time 10.8 9.6-11.6 SEC Prothromb Time International Ratio 0.96 0.85-1.15 Activated Partial Thromboplast Time 30.8 26.3-35.5 SEC Direct Bilirubin 0.1 0.0-0.3 mg/dL Lactate Dehydrogenase 184 81-234 U/L C-Reactive Protein, Quantitative 9.30 H 0.5-3.0 mg/L Triglycerides Level 131 30-200 mg/dL Cholesterol Level 179 <200 mg/dL LDL Cholesterol 123 H 0-99 mg/dL HDL Cholesterol 40 29-71 mg/dL Amylase Level 93 # 25-115 U/L Procalcitonin < 0.05 L 0.05-0.5 ng/mL Urine Color YELLOW YELLOW Urine Appearance CLEAR CLEAR Urine pH 5.5 5.0-8.0 Urine Specific [place] 1.026 1.001-1.031 Urine Protein 10 H NEGATIVE mg/dL Urine Glucose (UA) NEGATIVE NEGATIVE mg/dL Urine Ketones NEGATIVE NEGATIVE mg/dL Urine Occult Blood +- (TRACE) H NEGATIVE Urine Nitrate NEGATIVE NEGATIVE Urine Bilirubin NEGATIVE NEGATIVE mg/dL Urine Urobilinogen 0.2 0.2-1.0 mg/dL Urine Leukocyte Esterase NEGATIVE NEGATIVE Kely/uL Urine RBC 0-1 0-1 /HPF Urine WBC 0-1 0-1 /HPF Urine Squamous Epithelial Cells RARE 0-2 /HPF Urine Bacteria None None Seen /HPF Current Medications Medications (Trade) Dose Ordered Sig/Miguel Angel Route PRN Reason Start Time Stop Time Status Last Admin Dose Admin Acetaminophen (TYLenol 325MG TAB) 650 mg Q6H PRN PO MILD PAIN (1-3) 07/02/24 17:30 08/01/24 17:29 Albuterol (DUOneb) 1 udvial Q6H PRN IH SHORTNESS OF BREATH 07/02/24 19:30 08/01/24 19:29 Ceftriaxone Sodium (ROCEphine 1G INJ) 1 gm Q12H IVPB 07/02/24 19:00 07/12/24 18:59 07/03/24 06:31 1 GM Doxycycline Hyclate (Doxycycline Hyclate) 100 mg BID PO 07/02/24 21:00 07/12/24 20:59 07/03/24 09:37 100 MG Enoxaparin Sodium (Lovenox) 40 mg DAILY SQ 07/03/24 09:00 08/02/24 08:59 07/03/24 09:37 40 MG Ketorolac Tromethamine (toRADol) 15 mg Q8H PRN IV MODERATE PAIN (4-6) 07/02/24 17:30 07/04/24 17:30 07/03/24 06:31 15 MG Lactated Ringer's 1,000 ml @ 125 mls/hr Q8H IV 07/02/24 17:30 08/01/24 17:29 07/03/24 09:37 125 MLS/HR Morphine Sulfate (morPHINE 2MG SYG) 2 mg Q6H PRN IVP SEVERE PAIN (7-10) 07/02/24 17:30 07/09/24 17:29 07/03/24 01:48 2 MG Ondansetron HCl (zoFRAN 4MG INJ) 4 mg Q6H PRN IVP NAUSEA/VOMITING 07/02/24 17:30 08/01/24 17:29 Pantoprazole Sodium (PROTonix 40MG INJ) 40 mg Q24H IVP 07/02/24 17:30 08/01/24 17:29 07/02/24 18:20 40 MG DIAGNOSTICS / RADIOLOGY: [ ] ASSESSMENT: acute pancreatitis, POA right lower lobe community-acquired pneumonia, POA right upper quadrant right flank pain, POA Cholelithiasis, POA possible symptomatic biliary colic, POA Nonalcoholic fatty liver disease, POA Obesity, POA Nonobstructing left renal calculus, 5 mm, POA History of nephrolithiasis, POA PLAN: Consultation with the Gastroenterology noted will follow accordingly We will start patient on IV hydration with LR at 125 cc an hour, abdominal pain improves started on GI soft diet Continue on doxy and ceftriaxone We will obtain a right upper quadrant ultrasound noted CT abdomen/pelvis noted All labs will be repeated in the morning GI prophylaxis with Protonix, DVT prophylaxis with Lovenox Pain control with Tylenol for mild pain, Toradol for moderate pain, and morphine for severe pain Once patient clinically improves, discuss with him about dietary and lifestyle modification to lose weight, patient will benefit from outpatient sleep study to rule out obstructive sleep apnea, we will refer to sleep lab on discharge. ATTESTATION BY PHYSICIAN I have seen and examined the patient. I reviewed the documentation, medical decision making, and treatment plan as noted by the mid-level provider above. I agree with the findings and plan of care. Laya Harris MD, AISHWARYA MD Jul 03, 2024 11:16
--- NOTE | 2024-07-03 15:24 | NUR ---
Nutrition consult per obesity Reviewed labs, notes, and medications. Pt with possible acute pancreatitis, NPO, sedated, elevated CRP, elevated LDL 123 per chart review. Last BM 07/02/24, well nourished, no edema, no wounds per nursing. Pt with PCM per BMI of 41.8. Advance diet when medically feasible or consider alternate means of nutrition. Recommendations: -Advance diet when medically feasible to HH diet -Monitor PO intake -Encourage PO intake as able -Monitor BM -If no BM >3 days consider stool softener -Monitor electrolytes -Replenish electrolytes per protocol -Monitor wts -Reweigh as able -Order Vit D, vit b-12 labs to rule out deficiencies -Provide b-complex QD -Recommend Pt to follow up with PCP -Monitor goals of care RD to follow + available for consult per protocol Addendum: 07/03/24 at [address] Amended: Links added.
[2024-07-03 15:39] LABS: SARS-CoV-2, RNA, NAAT NEGATIVE SARS CoV-2 (NEGATIVE)
[2024-07-03 15:47] LABS: INFLUENZA TYPE A Negative For Type A (NEGATIVE); INFLUENZA TYPE B Negative For Type B (NEGATIVE)
[2024-07-03] MEDS ORDERED: hydrALAZine 20MG/ML VIAL IV PRN (16:30)
--- NOTE | 2024-07-03 17:59 | HMCIMG ---
MRCP(ABDWO)CHOLANGIOPANCREATOG REASON: cholethiasis COMPARISON: None TECHNIQUE: Routine imaging protocol was performed in the coronal and axial plane with T1, proton density, T2 and gradient recalled sequences. MRCP sequences were generated with coronal fluid sensitive the images using maximum pixel intensity projection technique. FINDINGS: There is cholelithiasis. There is no gallbladder wall thickening or edema. The common duct appears normal caliber throughout. MRCP images show normal appearance, no filling defects to suggest stones, the intrahepatic biliary tree is not distended. There are no focal liver lesions. Spleen, kidneys, pancreas and adrenal glands appear normal. There are no focal fluid collections and there is no free fluid. Pancreatic duct is not distended and there is no evidence of pancreatitis. IMPRESSION: 1. Cholelithiasis without evidence of acute cholecystitis or choledocholithiasis.
[2024-07-04 03:59] LABS: BASOPHILS # (AUTO) 0.04 K/uL (0.00-0.20); BASOPHILS % (AUTO) 0.5 % (0.0-5.0); EOSINOPHILS # (AUTO) 0.16 K/uL (0.00-0.70); HEMATOCRIT 42.7 % (42-54); IMMATURE GRANULOCYTE ABSOLUTE 0.01 K/uL (0-1); LYMPHOCYTES # (AUTO) 1.5 K/uL (1.0-4.8); LYMPHOCYTES % (AUTO) 19.1 % (21.0-51.0); MEAN CORPUSCULAR HEMOGLOBIN 29.4 pg (27.0-33.0); MEAN CORPUSCULAR HGB CONC 33.5 g/dL (32.0-36.0); MEAN CORPUSCULAR VOLUME 87.9 fL (79-99); MONOCYTES # (AUTO) 0.6 K/uL (0.1-1.0); MONOCYTES % (AUTO) 7.4 % (3.0-13.0); NEUTROPHILS # (AUTO) 5.7 K/uL (1.8-7.7); NEUTROPHILS % (AUTO) 70.9 % (40.0-77.0); PLATELET COUNT (AUTO) 228 K/uL (130-400); RED BLOOD CELL COUNT(AUTO) 4.86 MIL/uL (4.50-6.20); WHITE BLOOD COUNT (AUTO) 8.1 K/uL (4.8-10.8)
[2024-07-04 04:00] VITALS: BP 144/88; PULSE 55; RESP 18; TEMP 98.3
[2024-07-04 04:11] LABS: ALBUMIN 3.5 g/dL (3.5-5.0); BILIRUBIN,TOTAL 0.4 mg/dL (0.2-1.0); CREATININE 0.9 mg/dL (0.5-1.3); POTASSIUM 3.8 mmol/L (3.5-5.1)
[2024-07-04 07:44] VITALS: PULSE 63; RESP 20; O2SAT 98
[2024-07-04 08:00] VITALS: BP 123/77; PULSE 53; RESP 18; TEMP 98.3
--- NOTE | 2024-07-04 09:17 | NUR ---
DR GOMEZ SPOKE TO RE: MRCP RESULTS. SURGICAL EVAL RECOMENDED FOR CHLECYSTECTOMY. OK TO PLACE ON FULL LIQUID DIET AND AAT.
--- NOTE | 2024-07-04 11:06 | PN ---
[facility] PROGRESS NOTE Date of Service: Jul 04, 2024 Time of Service: 11:04 SUBJECTIVE: 44-year-old male with underlying history of obesity, previous history of nephrolithiasis who presented to the ER with chief complaint of right-sided flank pain and right upper quadrant pain ongoing for the past two days. Symptoms started close to Wednesday afternoon and has been nonresolving. Pain is 7/10 in severity. Symptoms have been accompanied by bloating. Denies any nausea or vomiting. Pain was involving the right flank earlier this morning and has migrated to the right upper quadrant. Denies any previous history of similar pain. Patient does have underlying history of left renal nephrolithiasis and previously needed lithotripsy in 2008. CT abdomen/pelvis1. No hydronephrosis seen. 5 mm nonobstructing calculus in the lower pole of the left kidney.2. Hepatic steatosis.3. Cholelithiasis.. Abdominal ultrasound-FATTY LIVER INFILTRATION AND HEPATOMEGALY. Cholelithiasis. 07/03-patient was seen at the bedside with his present. Stable and orientedx3, resolving right upper quadrant pain. Hemodynamically stable. Unremarkable labs. Patient will be continued on doxy and Rocephin for pneumonia. GI consultation noted for recommendation on cholelithiasis. Patient is started on a GI soft diet, we will see if he tolerates well. We will follow accordingly. 07/04-patient was seen by the bedside with his present. Stable and orientedx3, patient complains of back pain cramping, he says it is probably bit because of the uncomfortable bed not used to it. Hemodynamically stable unremarkable labs. GI has done MRCP shows Cholelithiasis without evidence of acute cholecystitis or choledocholithiasis. GI signed off saying general surgery to evaluate for possible cholecystectomy. General surgery has been consulted, ordered for a HIDA scan pending on results. Surgery advised the HIDA scan is positive patient will probably need a cholecystectomy this hospitalization and if diet as scan is negative follow outpatient with the surgery. REVIEW OF SYSTEMS CONSTITUTIONAL: Denies fevers, chills, or night sweats. No unintentional weight loss reported. NEUROLOGICAL: Denies headache, amaurosis fugax, motor weakness, sensory deficit, vertigo/spinning sensation, gait abnormalities, or tremors. ENT: No hearing loss, otalgia, otorrhea, rhinitis, rhinorrhea, hoarseness, or sore throat. CARDIOVASCULAR: Denies any exertional angina, dyspnea on exertion, orthopnea, paroxysmal nocturnal dyspnea, palpitations, life-threatening arrhythmias, claudication. PULMONARY: Denies any shortness of breath, cough, phlegm/sputum, hemoptysis, pleuritic chest pain. SLEEP: Denies morning headaches, daytime somnolence or napping. Denies difficulty falling asleep, staying asleep, waking from sleep. Denies knowledge of snoring. GASTROINTESTINAL: Persistent resolving right flank as well as right upper quadrant pain GENITOURINARY: Denies frequency, urgency, nocturia, hematuria or incontinence ( Storage/Irritative symptoms.) Low urinary stream, straining to void, urinary intermittency or hesitancy, splitting of the voiding stream, terminal dribbling. ENDOCRINOLOGIC: Denies polyuria, polydipsia, polyphagia or heat/cold intolerances. HEMATOLOGIC: Denies thrombophilia/previous clots, or coagulopathy/bleeding disorders. ONCOLOGIC: Denies personal history of malignancy. DERMATOLOGIC: Denies rashes or pruritus. PSYCHIATRIC: Denies any suicidal or homicidal ideation. Denies hallucinations. PHYSICAL EXAM GENERAL APPEARANCE: The patient is awake, alert, and oriented, in no acute cardiopulmonary distress. NEUROLOGICAL: Cranial nerves II-XII grossly intact. Motor is 5/5 in bilateral upper and lower extremities proximal to distal. No sensory deficits. HEENT: Face is symmetric. Pupils are equal and reactive. Extraocular movements are intact. NECK: Supple. No JVD. No thyromegaly. No submental, submandibular, pre- /postauricular, occipital or supraclavicular lymphadenopathy. CHEST: Normal chest expansion. No Telemetry. LUNGS: Absence of any rales, rhonchi or any wheezing. CARDIOVASCULAR: Regular. S1 and S2 normal. No appreciable rubs, murmurs or gallops. ABDOMEN: Soft, nontender, and nondistended. Mild tenderness to palpation of the right upper quadrant and right flank region with no rebound or guarding : Deferred. No [place]. EXTREMITIES: Non-edematous and not cyanotic. No clubbing. Good capillary refill. SKIN: No skin breakdown. Vital Signs (last 8hr) Date Time Temp Pulse Resp B/P (MAP) Pulse Ox O2 Delivery O2 Flow Rate FiO2 07/04/24 08:10 Room Air* 0 21 07/04/24 08:00 98.2 53 18 123/77 98 Room Air 07/04/24 07:44 63 20 N/A Room Air 21 07/04/24 04:00 98.2 55 18 144/88 96 Room Air LABS: Laboratory: Test 07/04/24 03:46 07/03/24 15:00 07/03/24 03:56 07/02/24 14:13 Range/Units White Blood Count 8.1 4.8-10.8 K/uL Red Blood Count 4.86 4.50-6.20 MIL/uL Hemoglobin 14.3 14.0-18.0 g/dL Hematocrit 42.7 42-54 % Mean Corpuscular Volume 87.9 79-99 fL Mean Corpuscular Hemoglobin 29.4 27.0-33.0 pg Mean Corpuscular Hemoglobin Concent 33.5 32.0-36.0 g/dL Red Cell Distribution Width 13.0 11.0-15.5 % Platelet Count 228 130-400 K/uL Mean Platelet Volume 11.9 H 7.5-10.5 fL Immature Granulocyte % (Auto) 0.1 0-1 % Neutrophils (%) (Auto) 70.9 40.0-77.0 % Lymphocytes (%) (Auto) 19.1 L 21.0-51.0 % Monocytes (%) (Auto) 7.4 3.0-13.0 % Eosinophils (%) (Auto) 2.0 0.0-8.0 % Basophils (%) (Auto) 0.5 0.0-5.0 % Neutrophils # (Auto) 5.7 1.8-7.7 K/uL Lymphocytes # (Auto) 1.5 1.0-4.8 K/uL Monocytes # (Auto) 0.6 0.1-1.0 K/uL Eosinophils # (Auto) 0.16 0.00-0.70 K/uL Basophils # (Auto) 0.04 0.00-0.20 K/uL Absolute Immature Granulocyte (auto 0.01 0-1 K/uL Nucleated Red Blood Cells 0.0 0.0-0.19 % Sodium Level 139 136-145 mmol/L Potassium Level 3.8 3.5-5.1 mmol/L Chloride Level 103 101-111 mmol/L Carbon Dioxide Level 30 21-32 mmol/L Blood Urea Nitrogen 7 7-18 mg/dL Creatinine 0.9 0.5-1.3 mg/dL Glomerular Filtration Rate Calc 108 >90 mL/min Random Glucose 89 70-105 mg/dL Total Calcium 9.2 8.5-10.1 mg/dL Total Bilirubin 0.4 # 0.2-1.0 mg/dL Aspartate Amino Transf (AST/SGOT) 34 10-37 U/L Alanine Aminotransferase (ALT/SGPT) 52 12-78 U/L Alkaline Phosphatase 114 50-136 U/L Total Protein 8.0 6.0-8.3 g/dL Albumin 3.5 3.5-5.0 g/dL Influenza Type A Antigen Negative For Type A NEGATIVE Influenza Type B Antigen Negative For Type B NEGATIVE SARS-CoV-2, RNA, NAAT NEGATIVE SARS CoV-2 NEGATIVE Magnesium Level 1.80 1.80-2.40 mg/dL Lipase 72 16-77 U/L Erythrocyte Sedimentation Rate 15 0-15 MM/HR Prothrombin Time 10.8 9.6-11.6 SEC Prothromb Time International Ratio 0.96 0.85-1.15 Activated Partial Thromboplast Time 30.8 26.3-35.5 SEC Direct Bilirubin 0.1 0.0-0.3 mg/dL Lactate Dehydrogenase 184 81-234 U/L C-Reactive Protein, Quantitative 9.30 H 0.5-3.0 mg/L Triglycerides Level 131 30-200 mg/dL Cholesterol Level 179 <200 mg/dL LDL Cholesterol 123 H 0-99 mg/dL HDL Cholesterol 40 29-71 mg/dL Amylase Level 93 # 25-115 U/L Procalcitonin < 0.05 L 0.05-0.5 ng/mL Test 07/02/24 13:08 Range/Units Urine Color YELLOW YELLOW Urine Appearance CLEAR CLEAR Urine pH 5.5 5.0-8.0 Urine Specific [place] 1.026 1.001-1.031 Urine Protein 10 H NEGATIVE mg/dL Urine Glucose (UA) NEGATIVE NEGATIVE mg/dL Urine Ketones NEGATIVE NEGATIVE mg/dL Urine Occult Blood +- (TRACE) H NEGATIVE Urine Nitrate NEGATIVE NEGATIVE Urine Bilirubin NEGATIVE NEGATIVE mg/dL Urine Urobilinogen 0.2 0.2-1.0 mg/dL Urine Leukocyte Esterase NEGATIVE NEGATIVE Kely/uL Urine RBC 0-1 0-1 /HPF Urine WBC 0-1 0-1 /HPF Urine Squamous Epithelial Cells RARE 0-2 /HPF Urine Bacteria None None Seen /HPF Current Medications Medications (Trade) Dose Ordered Sig/Miguel Angel Route PRN Reason Start Time Stop Time Status Last Admin Dose Admin Acetaminophen (TYLenol 325MG TAB) 650 mg Q6H PRN PO MILD PAIN (1-3) 07/02/24 17:30 08/01/24 17:29 Albuterol (DUOneb) 1 udvial Q6H PRN IH SHORTNESS OF BREATH 07/02/24 19:30 08/01/24 19:29 Ceftriaxone Sodium (ROCEphine 1G INJ) 1 gm Q12H IVPB 07/02/24 19:00 07/12/24 18:59 07/04/24 06:43 1 GM Doxycycline Hyclate (Doxycycline Hyclate) 100 mg BID PO 07/02/24 21:00 07/12/24 20:59 07/04/24 08:04 100 MG Enoxaparin Sodium (Lovenox) 40 mg DAILY SQ 07/03/24 09:00 08/02/24 08:59 07/03/24 09:37 40 MG Hydralazine HCl (APRESOLine 20MG INJ) 20 mg Q4H PRN IV ADMINISTER FOR SBP > 160 07/03/24 16:30 08/02/24 16:29 Ketorolac Tromethamine (toRADol) 15 mg Q8H PRN IV MODERATE PAIN (4-6) 07/02/24 17:30 07/04/24 17:30 07/03/24 06:31 15 MG Lactated Ringer's 1,000 ml @ 125 mls/hr Q8H IV 07/02/24 17:30 07/04/24 13:00 07/04/24 09:57 125 MLS/HR Morphine Sulfate (morPHINE 2MG SYG) 2 mg Q6H PRN IVP SEVERE PAIN (7-10) 07/02/24 17:30 07/09/24 17:29 07/04/24 06:43 2 MG Ondansetron HCl (zoFRAN 4MG INJ) 4 mg Q6H PRN IVP NAUSEA/VOMITING 07/02/24 17:30 08/01/24 17:29 Pantoprazole Sodium (PROTonix 40MG INJ) 40 mg Q24H IVP 07/02/24 17:30 08/01/24 17:29 07/03/24 18:45 40 MG DIAGNOSTICS / RADIOLOGY: [ ] ASSESSMENT: acute pancreatitis, POA right lower lobe community-acquired pneumonia, POA Nonresolving right upper quadrant right flank pain, POA Cholelithiasis, POA possible symptomatic biliary colic , POA Nonalcoholic fatty liver disease, POA Obesity, POA Nonobstructing left renal calculus, 5 mm, POA History of nephrolithiasis, POA PLAN: 44-year-old male presented with nonresolving right upper quadrant and right flank pain for the past two days, labs remarkable for mild elevation of lipase and CT abdomen pelvis showed findings of cholelithiasis, fatty liver, and nonobstructing 5 mm left renal calculus. Chest x-ray showed ill-defined infiltrates of the right lower lobe with concerns for developing pneumonia. Patient denies any significant cough, he did state that he was sick with URI symptoms about two weeks ago which has been resolving. Patient will be admitted to medical-surgical floor under telemetry monitoring We will start patient on IV hydration with LR at 125 cc an hour, we will keep him NPO tonight and once abdominal pain improves, we will start patient on a diet We will obtain sputum culture, we will start broad-spectrum antibiotics with IV Rocephin and doxycycline, we will also obtain COVID and flu panel, to further clarify diagnosis if patient has right lower lobe pneumonia, we can consider CT chest without contrast tomorrow monitor closely for fevers tonight We will obtain a right upper quadrant ultrasound to assess for developing acute cholecystitis as well, other differential diagnosis for right upper quadrant abdominal pain remains symptomatic biliary colic, we will have dietitian see patient for low-fat diet All labs will be repeated in the morning GI prophylaxis with Protonix, DVT prophylaxis with Lovenox Pain control with Tylenol for mild pain, Toradol for moderate pain, and morphine for severe pain We will see how patient progresses in the next 24-48 hours Once patient clinically improves, discuss with him about dietary and lifestyle modification to lose weight, patient will benefit from outpatient sleep study to rule out obstructive sleep apnea, we will refer to sleep lab on discharge Date of service: 07/02/2024 Prognosis: Guarded Plan of care was discussed with patient at bedside, Saulo Deluna MD ATTESTATION BY PHYSICIAN I have seen and examined the patient. I reviewed the documentation, medical decision making, and treatment plan as noted by the mid-level provider above. I agree with the findings and plan of care. Laya Harris MD, AISHWARYA MD Jul 04, 2024 11:06
[2024-07-04] MEDS ORDERED: GLUCAGON 1MG KIT 1 MG ML IM PRN (11:30)
[2024-07-04] MEDS ORDERED: PoTASSium chloRIDE 20MEQ ER 20 MEQ ERTAB PO PRN (11:30)
[2024-07-04] MEDS ORDERED: PoTASSium chloRIDE 20MEQ/100ML 100 ML IV PRN (11:30)
[2024-07-04] MEDS ORDERED: PoTASSium chl 10% ELIXIR 20MEQ 20 MEQ/15 ML UDCUP PO PRN (11:30)
[2024-07-04] MEDS ORDERED: DEXTROSE 50%-WATER 50 ML DISP.SYRIN IV PRN (11:30)
[2024-07-04 11:31] VITALS: BP 152/71; PULSE 64; RESP 20; TEMP 98
--- NOTE | 2024-07-04 11:54 | CONS ---
CONSULT NOTE: Consulting physician:Dr Deluna Consulting service: General surgery Reason for consultation: Cholelithiasis History of present illness: This is a 44-year-old male consulted to surgery after presenting to the hospital with concerns of abdominal pain that began Wednesday. Patient reports similar episodes. Patient reports that pain initially began in his right flank. Upon initial workup multiple images done concerning for cholelithiasis with no signs of cholecystitis but patient noted to have a 5 mm nonobstructing calculus in the lower left kidney. Patient is still with back pain radiating towards the front and upper quadrant. LFTs and labs unremarkable. Vitals stable. Patient currently NPO after having breakfast Medical history: Kidney stones Surgical history: Lithotripsy Review of systems: General: No Fever, No Chills, No Night Sweats, No Fatigue, No Malaise, No Appetite, No Other HEENT: No Head Aches, No Visual Changes, No Eye Pain, No Ear Pain, No Dysphasia , No Sinus Congestion, No Post Nasal Drip, No Sore Throat, No Other Pulmonary: No Dyspnea, No Cough, No Pleuritic Chest Pain, No Other Cardiovascular: No: Chest Pain, Palpitations, Orthopnea, Paroxysmal No Dyspnea, Edema, Lt Headedness, Other Gastrointestinal: No: Nausea, Vomiting, Diarrhea, Constipation, Melena, Hematochezia, Other Genitourinary: No Dysuria, No Frequency, No Incontinence, No Hematuria, No Retention, No Other Musculoskeletal: No: other, neck pain, shoulder pain, arm pain, back pain, hand pain, leg pain, foot pain Skin: No Urticaria, No Rash, No Other Neurological: No: Weakness, Numbness, Incoordination, Change in speech, Confusion, Seizures, Other Physical exam: General: Awake alert and oriented Heart: Regular rate and rhythm} Lungs: Clear to auscultation no distress Abdomen: [Soft, nontender, nondistended Assessment: This is a 44-year-old male with concerns of cholelithiasis accompanied with right flank pain Plan: At this point in time we will order HIDA scan to rule out cholecystitis Patient to be kept NPO until imaging complete If positive imaging confirming cholecystitis patient will need surgery this ho spitalization If negative patient is likely to be cleared from surgical standpoint for discharge once cleared medically with follow up to be scheduled with Dr. Butler in outpatient setting. Surgical team to follow patient closely nursing report any further acute events SAPPHIRE JETT Jr. Jul 04, 2024 11:54
[2024-07-04 16:00] VITALS: BP 143/75; PULSE 74; RESP 20; TEMP 97.8
--- NOTE | 2024-07-04 16:53 | HMCIMG ---
NM HIDA WO EF/CCK REASON: STONES COMPARISON: None TECHNIQUE: Routine imaging protocol was performed following injection of 7.5 mCi technetium 99m Choletec. FINDINGS: There is normal hepatic parenchymal uptake. There is prompt excretion into the gallbladder and common duct. There is near complete clearing of hepatic activity by the 1 hour image. IMPRESSION: 1. Normal hepatobiliary scan.
--- NOTE | 2024-07-04 17:17 | NUR ---
HIDA SCAN RESULTS NOTIFIED SAPPHIRE MCDERMOTT OF NORMAL HIDA SCAN. CLEARED FROM SURGUICAL STANDPOINT TO GO HOME AND F/U IN OFFICE OP
--- NOTE | 2024-07-04 17:23 | DS ---
Discharge Summary Hospital Course Summary: 44-year-old male with underlying history of obesity, previous history of nephrolithiasis who presented to the ER with chief complaint of right-sided flank pain and right upper quadrant pain ongoing for the past two days. Symptoms started close to Wednesday afternoon and has been nonresolving. Pain is 7/10 in severity. Symptoms have been accompanied by bloating. Denies any nausea or vomiting. Pain was involving the right flank earlier this morning and has migrated to the right upper quadrant. Denies any previous history of similar pain. Patient does have underlying history of left renal nephrolithiasis and previously needed lithotripsy in 2008. CT abdomen/pelvis1. No hydronephrosis seen. 5 mm nonobstructing calculus in the lower pole of the left kidney.2. Hepatic steatosis.3. Cholelithiasis.. Abdominal ultrasound-FATTY LIVER INFILTRATION AND HEPATOMEGALY. Cholelithiasis. 07/03-patient was seen at the bedside with his present. Stable and orientedx3, resolving right upper quadrant pain. Hemodynamically stable. Unremarkable labs. Patient will be continued on doxy and Rocephin for pneumonia. GI consultation noted for recommendation on cholelithiasis. Patient is started on a GI soft diet, we will see if he tolerates well. We will follow accordingly. 07/04-patient was seen by the bedside with his present. Stable and orientedx3, patient complains of back pain cramping, he says it is probably bit because of the uncomfortable bed not used to it. Hemodynamically stable unremarkable labs. GI has done MRCP shows Cholelithiasis without evidence of acute cholecystitis or choledocholithiasis. GI signed off saying general surgery to evaluate for possible cholecystectomy. General surgery has been consulted, ordered for a HIDA scan pending on results. Surgery advised the HIDA scan is positive patient will probably need a cholecystectomy this hospitalization and if diet as scan is negative follow outpatient with the surgery. Patient is in a stable position to get discharged, negative HIDA scan. Patient to be followed up with Dr. Bourgeois general surgery. Procedure(s): PATIENT: ANURAG MORENO III MR#: [id number] : 1980 SEX: M AGE: 44 LOCATION: [facility] ORDER 1303 STATUS: ADM IN REPORT#: [id number] SERVICE 1301 REASON: RIGHT FLANK PAIN RADIATING TO RIGHT LOWER QUADRANT TWO DAYS ORDERING PHYSICIAN: GERMAN HENRY NP PROCEDURE: ABD PEL WO - CT ABDOMEN/PELVIS W/O CONTRAST CT ABDOMEN/PELVIS W/O CONTRAST INDICATION: RIGHT FLANK PAIN RADIATING TO RIGHT LOWER QUADRANT TWO DAYS TECHNIQUE: CT ABDOMEN/PELVIS W/O CONTRAST. Oral contrast was not given. Coronal and sagittal reformats were performed. CT was performed with one or more of the following dose reduction techniques: Automated exposure control, adjustment of the mA and/or kV according to the patient's size, or use of the iterative reconstruction technique. Comparison: 02/11/2024 FINDINGS: The noncontrast nature this study limits evaluation of abdominal viscera. No pulmonary consolidation or pleural effusion is seen. There is hepatic steatosis. Small gallstone is seen. Contracted gallbladder. The spleen, pancreas, and adrenal glands are within normal limits. No hydronephrosis seen. 5 mm nonobstructing calculus in the lower pole of the left kidney. Nondistended urinary bladder. Reproductive organs are grossly within normal limits for patient's age. No bowel obstruction identified. Appendix is normal in caliber. Degenerative changes of the spine. Visualized aorta is normal in caliber. IMPRESSION: 1. No hydronephrosis seen. 5 mm nonobstructing calculus in the lower pole of the left kidney. 2. Hepatic steatosis. 3. Cholelithiasis.. DICTATED BY: VELVET AMBROCIO MD DATE: 07/02/24 1346 ELECTRONICALLY SIGNED BY: VELVET AMBROCIO MD DATE: 07/03/24 0956 PATIENT: ANURAG MORENO III MR#: [id number] : 1980 SEX: M AGE: 44 LOCATION: [facility] ORDER 07 STATUS: ADM IN REPORT#: [id number] SERVICE 170 REASON: assess for any significant infiltrates, possible pancreatitis ORDERING PHYSICIAN: EFRA HARRIS MD PROCEDURE: CXR1VW - CHEST 1VW Exam Type: CHEST 1VW Clinical Information: assess for any significant infiltrates, possible pancreatitis Comparison: None Findings: Ill-defined infiltrates of the right lower lobe are seen consistent with pneumonia. The heart is normal in size. The bony and soft tissue structures show no worrisome pathology. IMPRESSION: Findings consistent with pneumonia. Follow-up is advised. DICTATED BY: BALJINDER AMES MD DATE: 07/02/24 1800 ELECTRONICALLY SIGNED BY: BALJINDER AMES MD DATE: 07/02/24 180 PATIENT: ANURAG MORENO III MR#: [id number] : 1980 SEX: M AGE: 44 LOCATION: [facility] ORDER 08 STATUS: ADM IN REPORT#: [id number] SERVICE 06 REASON: r/o cholecystitis, assess for cholelithiasis ORDERING PHYSICIAN: EFRA HARRIS MD PROCEDURE: ABDRUQLTD - US ABDOMINAL RUQ\LTD Exam Type: US ABDOMINAL RUQ\E\LTD Clinical Information: r/o cholecystitis, assess for cholelithiasis Comparison: None Findings: The liver shows fatty infiltration and is enlarged, measuring 18 cm and is otherwise unremarkable. Doppler evaluation shows patent portal and hepatic veins. The gallbladder shows evidence of cholelithiasis. There is no evidence of acute or chronic cholecystitis. No bile duct dilatation is noted. The gallbladder wall measures 2 mm. The common bile duct measures 6 mm. The right kidney measures 12 x 3.5 cm- it shows no hydronephrosis or calculi, masses or other abnormalities. The pancreas is unremarkable. The aorta and inferior vena cava show no significant abnormalities. IMPRESSION: FATTY LIVER INFILTRATION AND HEPATOMEGALY. Cholelithiasis. DICTATED BY: BALJINDER AMES MD DATE: 07/02/241855 ELECTRONICALLY SIGNED BY: BALJINDER AMES MD DATE: 07/02/241858 PATIENT: ANURAG MORENO III MR#: [id number] : 1980 SEX: M AGE: 44 LOCATION: [facility] ORDER 170 STATUS: ADM IN REPORT#: [id number] SERVICE 165 REASON: cholethiasis ORDERING PHYSICIAN: MAY SCHRADER MD PROCEDURE: MRCP WO - MRCP(ABDWO)CHOLANGIOPANCREATOG MRCP(ABDWO)CHOLANGIOPANCREATOG REASON: cholethiasis COMPARISON: None TECHNIQUE: Routine imaging protocol was performed in the coronal and axial plane with T1, proton density, T2 and gradient recalled sequences. MRCP sequences were generated with coronal fluid sensitive the images using maximum pixel intensity projection technique. FINDINGS: There is cholelithiasis. There is no gallbladder wall thickening or edema. The common duct appears normal caliber throughout. MRCP images show normal appearance, no filling defects to suggest stones, the intrahepatic biliary tree is not distended. There are no focal liver lesions. Spleen, kidneys, pancreas and adrenal glands appear normal. There are no focal fluid collections and there is no free fluid. Pancreatic duct is not distended and there is no evidence of pancreatitis. IMPRESSION: 1. Cholelithiasis without evidence of acute cholecystitis or choledocholithiasis. DICTATED BY: LI ARAGON MD DATE: 07/03/241753 ELECTRONICALLY SIGNED BY: LI ARAGON MD DATE: 07/03/241758 PATIENT: ANURAG MORENO III MR#: [id number] : 1980 SEX: M AGE: 44 LOCATION: [facility] ORDER 1143 STATUS: ADM IN REPORT#: [id number] SERVICE 1259 REASON: STONES ORDERING PHYSICIAN: SAPPHIRE JETT Jr. PROCEDURE: HIDAWO - NM HIDA WO EF/CCK NM HIDA WO EF/CCK REASON: STONES COMPARISON: None TECHNIQUE: Routine imaging protocol was performed following injection of 7.5 mCi technetium 99m Choletec. FINDINGS: There is normal hepatic parenchymal uptake. There is prompt excretion into the gallbladder and common duct. There is near complete clearing of hepatic activity by the 1 hour image. IMPRESSION: 1. Normal hepatobiliary scan. DICTATED BY: LI ARAGON MD DATE: 07/04/241648 ELECTRONICALLY SIGNED BY: LI ARAGON MD DATE: 07/04/241652 Assessment/Plan: ASSESSMENT: Cholelithiasis, POA acute pancreatitis, POA right lower lobe community-acquired pneumonia, POA Nonresolving right upper quadrant right flank pain, POA Possible symptomatic biliary colic , POA Nonalcoholic fatty liver disease, POA Obesity, POA Nonobstructing left renal calculus, 5 mm, POA History of nephrolithiasis, POA PLAN: ADMISSION DATE: 07/02/2024 DISCHARGE DATE: 2023 DISPOSITION: Home CONDITION: Stable BLOWING WEASAND(S): Gastrology: Dr. JASON KEYS, general surgery: DR. BOURGEOIS FOLLOW UP APPOINTMENT(S): Patient WILL HAVE SCHEDULED FOLLOW UP GENERAL SURGERY DR. BOURGEOIS PROCEDURES: none IMAGING (S) report attached to summary : ATTACHED ABOVE MICROBIOLOGY: report attached to summary; none ACTIVITY: ab da HOME MEDICATIONS : Continued NEW MEDICATIONS- none TEACHING: We reinforced the importance of compliance,with follow-up appointment and medication compliance. Advised patient to follow-up with general surgeon Emergency instructions: The patient was instructed to present to the nearest Emergency Department or call 911 should their symptoms return or worsen. Home Medications: Active Scripts Ondansetron (Ondansetron Odt) 4 Mg Tab.rapdis, 4 MG PO TID PRN for NAUSEA/VOMITING, #30 TAB 0 Refills Prov:ZAKIYA WALKER MD 02/11/24 Ibuprofen (Ibuprofen 800 mg Tab) 800 Mg Tab, 800 MG PO Q6H PRN for PAIN, #30 TAB 0 Refills Prov:ZAKIYA WALKER MD 02/11/24 Tamsulosin HCl (Flomax) 0.4 Mg Cap.er.24h, 0.4 MG PO DAILY, #[address] Wright Refills Prov:ZAKIYA WALKER MD 02/11/24 Continued Medications: Ibuprofen (Ibuprofen 800 mg Tab) 800 Mg Tab 800 MG PO Q6H PRN for PAIN, #30 TAB 0 Refills Ondansetron (Ondansetron Odt) 4 Mg Tab.rapdis 4 MG PO TID PRN for NAUSEA/VOMITING, #30 TAB 0 Refills Tamsulosin HCl (Flomax) 0.4 Mg Cap.er.24h 0.4 MG PO DAILY, #[address] Wright Refills Time spent arranging discharge: 1-30 minutes ATTESTATION BY PHYSICIAN I have seen and examined the patient. I reviewed the documentation, medical decision making, and treatment plan as noted by the mid-level provider above. I agree with the findings and plan of care. Laya Harris MD, AISHWARYA MD Jul 04, 2024 17:23
--- NOTE | 2024-07-04 18:25 | NUR ---
PATIENT DISCHARGE HOME VIA PERSONAL VEHICLE . IV AND TELEMONITOR REMOVED. ALL QUESTION AND CONCERNS ANSWERED. PATIENT VERBALIZE UNDERSTANDING TO MAKE APPOINTMENT WITH DR. BOURGEOIS AND PCP.
--- NOTE | 2024-07-04 18:36 | NUR ---
D/C INSTRUCTIONS D/C INSTRUCTIONS GIVEN AND ACKNOWLEDGED. IV REMOVED
== END 2024-07-04 18:45 | disposition home or self-care (01) | DRG 438 ==
LOC: EDH 12:56 → OBSVTOIN 12:57 → EDHIP 12:57 → 3AH 21:13
PROVIDERS: ADMIT Internal Medicine; ATTEND Internal Medicine
DX: K85.90 Acute pancreatitis without necrosis or infection, unspecified (principal); J18.9 Pneumonia, unspecified organism; Z68.1 Body mass index [BMI] 19.9 or less, adult; K80.20 Calculus of gallbladder without cholecystitis without obstruction; N20.0 Calculus of kidney; Z20.822 Contact with and (suspected) exposure to COVID-19; K76.0 Fatty (change of) liver, not elsewhere classified; E66.9 Obesity, unspecified; Z79.899 Other long term (current) drug therapy
CPT/HCPCS: 36415; 71045; 74176; 74181; 76705; 78226; 80048; 80053; 80061; 80076; 81001; 82150; 83615; 83690; 83735; 84145; 85025; 85610; 85651; 85730; 86140; 87635; 87804; 94664; A9537; G0378; J0696; J1650; J1885; J2270; J2470; J3490; J7030; J7120; S8037

== ENCOUNTER 2024-07-07 08:29 | Emergency (ER) | payer SELFPAY ==
[~2024-07-07] VITALS: Ht 172.7 cm; Wt 124.7 kg
[2024-07-07 08:31] VITALS: BP 143/86; PULSE 90; RESP 16; TEMP 98.2
--- NOTE | 2024-07-07 08:59 | ERN ---
ED Note History of Present Illness Stated Complaint: RASH TO RIGHT SIDE OF ABD Chief Complaint: Skin Rash/Abscess Time Seen by : 08:38 Dictation: This is a case of 44-year-old male with a past medical history of gallstones, renal stones s/p lithotripsy who presented to the ER with the complaints of painful rash on the right side of his abdomen since 3 days. He reported initially experiencing pain in his right flank and abdomen last week, leading to hospital admission on suspicion of gallstones, post which he was discharged due to negative workup. However, starting last Wednesday, he began to develop a painful vesicular rash accompanied by itching and burning sensation. He denies fever, chills, nausea, vomiting, eye pain, headache, ear pain, facial rash/pain, chest pain, palpitations, shortness of breath, burning sensation with urination, abnormal penile discharge, rashes in genital region. Allergies: Coded Allergies: No Known Drug Allergies (Unverified Allergy, Unknown, 02/11/24) Home Meds Active Scripts Acetaminophen with Codeine (Acetaminophen-Cod #3 Tablet) 300 Mg-30 Mg Tablet, 1 TAB PO Q6HPRN PRN for pain for 7 Days, #28 TAB 0 Refills Prov:SANDIE SHARMA DO 07/07/24 Capsaicin (Capsaicin) 0.025 % Cream..g., 1 APPL TP TID PRN for PAIN for 30 Days, #60 GM 0 Refills Prov:VANIA MCCRARY MD 07/07/24 Valacyclovir HCl (Valacyclovir) 1,000 Mg Tablet, 1 TAB PO TID for 7 Days, #21 TAB 0 Refills Prov:VANIA MCCRARY MD 07/07/24 Lidocaine HCl (Lidocaine HCl) 4 % Adh..patch, 1 PATCH TP DAILY PRN for PAIN for 7 Days, #7 PATCH 0 Refills Prov:VANIA MCCRARY MD 07/07/24 Ondansetron (Ondansetron Odt) 4 Mg Tab.rapdis, 4 MG PO TID PRN for NAUSEA/VOMI TING, #30 TAB 0 Refills Prov:ZAKIYA WALKER MD 02/11/24 Ibuprofen (Ibuprofen 800 mg Tab) 800 Mg Tab, 800 MG PO Q6H PRN for PAIN, #30 TAB 0 Refills Prov:ZAKIYA WALKER MD 02/11/24 Tamsulosin HCl (Flomax) 0.4 Mg Cap.er.24h, 0.4 MG PO DAILY, #[address] 0 Refills Prov:ZAKIYA WALKER MD 02/11/24 Past Medical History Past Medical History: Gallstones, Kidney Stone Surgical History: Other Surgical History Other: LITHOTRIPSY Review of System Dictation ROS Constitutional: No appetite loss, No fevers, chills , No night sweats, No weakness, fatigue, Pain, itchiness burning sensation in and around the rash i.e right upper abdomen and flank region Eye: No vision change, No redness, pain or discharge ENT: No hearing loss, ear pain or discharge, No nose bleeds, No sore throat, Neck: No swelling. pain or stiffness Respiratory: No cough, shortness of breath, wheezing Cardiovascular: No chest pain,, palpitations, dyspnea, No edema Gastrointestinal: , No nausea, vomiting, No diarrhea, constipation Genitourinary: No painful urination, No blood in urine, No urinary incontinence, No frequency or urgency Musculoskeletal: No joint pain, muscle pain, swelling or stiffness Neurological: No numbness, tingling, No weakness, tremors or seizures Psychiatric: : No depression, No anxiety, No sleep disturbance, No Memory changes Lymphatic: No easy bruising, No bleeding tendencies , No swollen lymph nodes A 13-point Review of Systems was assessed, all of which are negative except for HPI or as indicated above. Initial Vital Sign VS Vital Signs Date Time Temp Pulse Resp B/P (MAP) Pulse Ox O2 Delivery O2 Flow Rate FiO2 07/07/24 08:31 98.2 90 16 143/86 99 Room Air 0 Physical Exam Dictation General: Alert & Oriented, No acute distress erythematous, vesicular rash noted extending from right upper quadrant to right flank. EENT: No conjunctival redness or discharge noted Tympanic membranes are clear, Normal hearing, Oral mucosa is moist, No pharyngeal erythema, No nasal discharge, No oral lesions. Neck: Non-tender, No jugular vein distention, No lymphadenopathy, No thyromegaly, Supple. Respiratory: Lungs are clear to auscultation, Respirations are non-labored, Breath sounds are equal, No chest wall tenderness, _. Cardiovascular: Normal rate, Normal rhythm, No murmur, Good pulses equal in all extremities, Normal peripheral perfusion, No edema. Gastrointestinal: Soft, Non-tender, Non-distended, Normal bowel sounds, No organomegaly, _. Musculoskeletal: Normal range of motion, Normal strength, No tenderness, No swelling, No deformity, Normal gait. Integumentary: Warm, Dry, [place], Intact, No pallor, No rash. Neurologic: Alert, Oriented x4, Normal sensory, No focal defects Psychiatric: Cooperative, Appropriate mood & affect, Normal judgement, Non- suicidal. ED Course ED Course Vital Signs Date Time Temp Pulse Resp B/P (MAP) Pulse Ox O2 Delivery O2 Flow Rate FiO2 07/07/24 08:31 98.2 90 16 143/86 99 Room Air 0 Medical Decision Making MDM MDM Potential differential diagnoses include: Herpes zoster Contact dermatitis Assessment: I will re-evaluate the patient after treatment and diagnostic exams have returned to determine whether they require further testing, can be safely discharged home, or need admission for further treatment and evaluation. Given the social determinants of health affecting care, including literacy, access to medical care, prescription drug management, and drjk-svy-upxcdaw drugs, I will ensure that treatment plans are tailored accordingly. Revaluation : Patient is alert and oriented. Disposition: Will discharge patient at this time with prescription of Valacyclovir 1 g 3 times daily for 7 days, capsaicin cream and lidocaine patch, acetaminophen codeine pain medication p.r.n..... PO and instructions to follow up with PCP for further evaluation and treatment. Advised to Follow-up with PCP within 2-3 days Complete the antiviral valacyclovir medication dose as directed Keep the rash clean and dry Avoid scratching the rash Get plenty of rest and stay hydrated Monitor for symptoms like fever, chills or signs of infection like pus, increased redness, new or persistent neurological symptoms such as weakness or vision changes and seek immediate medical attention in such scenario DX & DISP Disposition: Discharge Departure Impression: Primary Impression: Shingles rash Critical Time: 30 minutes Condition: Stable Scripts Acetaminophen with Codeine (Acetaminophen-Cod #3 Tablet) 300 Mg-30 Mg Tablet 1 TAB PO Q6HPRN PRN for pain for 7 Days, #28 TAB 0 Refills Prov: SANDIE SHARMA DO 07/07/24 Capsaicin (Capsaicin) 0.025 % Cream..g. 1 APPL TP TID PRN for PAIN for 30 Days, #60 GM 0 Refills Prov: VANIA MCCRARY MD 07/07/24 Valacyclovir HCl (Valacyclovir) 1,000 Mg Tablet 1 TAB PO TID for 7 Days, #21 TAB 0 Refills Prov: VANIA MCCRARY MD 07/07/24 Lidocaine HCl (Lidocaine HCl) 4 % Adh..patch 1 PATCH TP DAILY PRN for PAIN for 7 Days, #7 PATCH 0 Refills Prov: VANIA MCCRARY MD 07/07/24 Referrals: SELF,REFERRAL (PCP) ATTESTATION BY PHYSICIAN I performed a substantive portion of the visit. I have reviewed and personally made and approve the management plan that is documented in the notes by myself with LEANNA/resident. I acknowledged full responsibility for the patient's management plan. SANDIE SHARMA PRIYANKA MD Jul 07, 2024 08:59 SANDIE SHARMA DO Jul 08, 2024 18:30
[2024-07-07] MEDS ORDERED: VALA100031 PO (09:33)
[2024-07-07] MEDS ORDERED: LIDO-15 TP (09:33)
[2024-07-07] MEDS ORDERED: CAPS60CR3 TP (09:33)
[2024-07-07] MEDS ORDERED: ACET-2079 PO (09:38)
== END 2024-07-07 10:28 | disposition home or self-care (01) ==
LOC: EDH 08:29 → EEVIPCON 08:29 → EDH 10:28
DX: B02.9 Zoster without complications (principal); Z79.624 Long term (current) use of inhibitors of nucleotide synthesis; Z98.890 Other specified postprocedural states
CPT/HCPCS: 99283